=== PATIENT | female | born 1990 | race Caucasian/White ===

== ENCOUNTER → 2017-01-28 | Outpatient (CLI) | payer BC ==
[2017-01-28 15:26] VITALS: BP 144/78; PULSE 85; RESP 16; TEMP 98.2; BMI 52.1
[2017-01-28 16:27] LABS: CH 27.8; CHCM 32.6; HCT 38.1 % (34.0-46.0); HDW 2.83; HGB 12.3 gm/dL (11.4-16.0); MCH 27.7 pg (25.0-35.0); MCHC 32.3 g/dL (31.0-37.0); MCV 85.7 fL (80.0-100.0); Mean Platelet Volume 8.4; RBC 4.44 m/uL (3.80-5.40); RDW 14.3 % (11.5-15.5); WBC 8.4 k/uL (3.8-10.6)
[2017-01-28 16:33] LABS: ALT 65 U/L (9-52); AST 68 U/L (14-36); Alkaline Phosphatase 91 U/L (38-126); Anion Gap 14 mmol/L; Blood Urea Nitrogen 12 mg/dL (7-17); Carbon Dioxide 24 mmol/L (22-30); Chloride 103 mmol/L (98-107); Cholesterol 201 mg/dL (<200); Glucose 79 mg/dL (74-99); HDL Cholesterol 66 mg/dL (40-60); Non-African American GFR(MDRD) >60 (>60 ml/min/1.73 sqM); Potassium 4.4 mmol/L (3.5-5.1); Sodium 141 mmol/L (137-145); Total Bilirubin 0.4 mg/dL (0.2-1.3); Total Protein 7.6 g/dL (6.3-8.2); Triglycerides 161 mg/dL (<150)
[2017-01-28 17:38] LABS: Vitamin B12 620 pg/mL (239-931)
[2017-01-28 18:55] LABS: Hemoglobin A1C 5.1 % (4.2-6.1)
[2017-01-28 23:50] LABS: Iron 45 ug/dL (37-170)
[2017-01-28 23:59] LABS: % Iron Saturation 11.3 % (20-50); Total Iron Binding Capacity 397 ug/dL (265-497)
[2017-02-02 06:43] LABS: Anabasine Urine <2.0 ng/mL (<2.0)
--- NOTE | 2017-03-05 03:00 | P.PN ---
Progress Note - Text DATE OF CONSULTATION: 01/28/2017 CHIEF COMPLAINT: Initial bariatric assessment. HISTORY OF PRESENT ILLNESS: Bailey Estrella is a 27-year-old female who presents for her initial bariatric evaluation. She is evaluating for a sleeve gastrectomy. She has completed evaluation with a verifying specialist and also had medical risk assessment. She is pending a psych assessment. She reports previous tobacco use including marijuana. As a result of her morbid obesity she has developed hypertension. She has strong family history of weight problems with her mother including grandfather. She has history of diabetes in her family. She reports gastroesophageal reflux disease. Denies any personal or family history of esophageal or stomach cancer. She denies any lupus or Crohn's disease or pulmonary embolism or DVTs. She still has her gallbladder. She reports severe panniculitis. She also reports osteoarthritis of the lower back, but she denies any pain along the hips or knees. Her heaviest weight is at present, where she comes in weighing 350 pounds for her 5 feet 8-3/4 inches frame. Her ideal body weight is 163 pounds. She is 187 pounds overweight. Body mass index is 52.1. PAST MEDICAL HISTORY: 1. Osteoarthritis of the lower back. 2. Panniculitis. 3. Gastroesophageal reflux disease. 4. Hypertensive heart disease. 5. Vitamin D deficiency. 6. Depression. 7. History of nicotine use. 8. History of heart valve disease. PAST SURGICAL HISTORY: 1. Appendectomy. 2. . INDICATIONS: 1. Vitamin B12. 2. Vitamin C. 3. Multivitamin. 4. Magnesium. 5. Vitamin D. 6. Lexapro. 7. Lopressor. ALLERGIES: Denies. SOCIAL HISTORY: Former tobacco use. Also reports alcohol use. She smokes medicinal marijuana. FAMILY HISTORY: Pertinent for diabetes including morbid obesity. She denies any esophageal cancer or stomach cancer. REVIEW OF SYSTEMS: CONSTITUTIONAL: [place] body weight for her 5 foot 8-3/4 inch frame is 163 pounds. Present weight is 350 pounds. She is 187 pounds overweight. Body mass index is 52.1. HEENT: Denies any troubles with vision or hearing. No reports of nasal bleed. No reports of diabetes. ENDOCRINE: No report of diabetes. Denies any thyroid disorders. RESPIRATORY: No recent evaluation of obstructive sleep apnea. Denies any dyspnea on exertion. GASTROINTESTINAL: Gastroesophageal reflux disease. No reports of Crohn's disease or ulcerative colitis. Denies any active diarrhea. MUSCULOSKELETAL: She has lower back pain. No reports of rheumatoid arthritis or lupus. NEURO: No report of stroke or seizure disorder. PSYCH: No reports of suicidal ideation. Has history of depression. HEMATOLOGIC: No reports of DVTs or pulmonary embolism. DIETARY HISTORY: Reports previous attempted weight loss with minimal success. Most weight loss in supervised program is 40 pounds. PHYSICAL EXAM: VITAL SIGNS: 98.2, 85, 16, 144/78; 5 foot 8-3/4 inch frame, 350 pounds. Body mass index 52.1. GENERAL: Well-developed, pleasant female in no acute distress. HEENT: No scleral icterus. Extraocular movements grossly intact. Moist buccal mucosa. NECK: Supple without lymphadenopathy. CHEST: Nonlabored respirations. Equal bilateral scars. CARDIOVASCULAR: Regular rate and rhythm. ABDOMEN: Obese, soft, nontender, nondistended. MUSCULOSKELETAL: No clubbing, cyanosis, or edema. New focal or lateralizing signs. PSYCH: Appropriate affect. Alert and oriented to person, place, and time. LABS: Basic metabolic panel was obtained demonstrating percent iron saturation low at 11.3%. Hemoglobin A1c is normal at 5.1%. AST was elevated at 60. ALT elevated at 65. Triglycerides elevated at 161. Cholesterol elevated at 201. LDL elevated at 103. HDL elevated at 66. Vitamin D low at 22. Urine nicotine test was negative. EKG normal sinus rhythm. ASSESSMENT: 1. Morbid obesity due to excess calories. 2. Body mass index of 52.1. 3. Essential hypertension. 4. Previous history of tobacco use, now resolved. 5. Gastroesophageal reflux disease. 6. Family history of gallbladder disease. 7. Panniculitis. 8. Osteoarthritis of the lower back. 9. Dietary surveillance and counseling. 10. Hypertriglyceridemia. 11. Elevated AST. 12. Elevated ALT. 13. Vitamin D deficiency. PLAN: 1. I recommend vitamin D supplement at minimum of 5000 units daily. 2. She has elevated liver enzymes highly suspicious for fatty liver disease. Recommend ultrasound of the right upper quadrant and liver. 3. She is evaluating for sleeve gastrectomy. [facility] Data was reviewed in detail, including benefits and risks and comorbidity resolution between the band, sleeve and Chaim-en-Y gastric bypass. 4. She is pending psych clearance and assessment. 5. Recommend upper endoscopy for history of gastroesophageal reflux disease. 6. Recommend follow-up upon on completion of her upper endoscopy and bariatric profile. Thank you very much for this kind consultation.
== END | disposition home or self-care (01) ==
LOC: BARWHC3 13:50
PROVIDERS: ATTEND Surgery Plastic and Reconstructive Surgery
DX: Z01.818 Encounter for other preprocedural examination (principal); E66.01 Morbid (severe) obesity due to excess calories; Z68.43 Body mass index [BMI] 50.0-59.9, adult; K21.9 Gastro-esophageal reflux disease without esophagitis; E89.1 Postprocedural hypoinsulinemia; D50.9 Iron deficiency anemia, unspecified; E44.0 Moderate protein-calorie malnutrition; E55.9 Vitamin D deficiency, unspecified; I11.9 Hypertensive heart disease without heart failure; M54.02 Panniculitis affecting regions of neck and back, cervical region; M47.896 Other spondylosis, lumbar region; E78.1 Pure hyperglyceridemia; R79.89 Other specified abnormal findings of blood chemistry; F32.9 Major depressive disorder, single episode, unspecified; Z87.891 Personal history of nicotine dependence; Z79.899 Other long term (current) drug therapy; F12.90 Cannabis use, unspecified, uncomplicated; Z84.89 Family history of other specified conditions
CPT/HCPCS: 80053; 80061; 80323; 82306; 82607; 82728; 82746; 83036; 83540; 83550; 84425; 84443; 85027; 99201

== ENCOUNTER 2017-02-25 07:13 | Day surgery (SDC) | payer BC ==
[2017-02-20 14:30] VITALS: BMI 53.1
--- NOTE | 2017-02-25 01:50 | P.GSHP ---
History of Present Illness H&P Date: 02/25/17 CHIEF COMPLAINT: GERD HISTORY OF PRESENT ILLNESS: The patient is a 27-year-old female who presents reports gastroesophageal reflux disease. Upper endoscopy was offered for further evaluation and management. PAST MEDICAL HISTORY: Please see list. PAST SURGICAL HISTORY: Please see list. MEDICATIONS: Please see list. ALLERGIES: Please see list. SOCIAL HISTORY: No illicit drug use FAMILY HISTORY: No reports of Crohn disease or ulcerative colitis. REVIEW OF ORGAN SYSTEMS: CONSTITUTIONAL: No reports of fevers or chills. GI: Denies any blood in stools or constipation. PHYSICAL EXAM: VITAL SIGNS: Stable GENERAL: Well-developed and pleasant in no acute distress. HEENT: No scleral icterus. Extraocular movements grossly intact. Moist buccal mucosa. NECK: Supple without lymphadenopathy. CHEST: Unlabored respirations. Equal bilateral excursions. CARDIOVASCULAR: Regular rate and rhythm. Distal 2+ pulses. ABDOMEN: Soft, nondistended. MUSCULOSKELETAL: No clubbing, cyanosis, or edema. ASSESSMENT: 1. Gastroesophageal reflux disease PLAN: 1. Recommend proceeding with an upper endoscopy Past Medical History Past Medical History: Asthma, Hypertension Additional Past Medical History / Comment(s): heart valve disease, pt states has enlarged lt atrium, irreg. heart rate, hx anemia, pelvic inflammatory disease History of Any Multi-Drug Resistant Organisms: None Reported Past Surgical History: Appendectomy, Section Past Anesthesia/Blood Transfusion Reactions: No Reported Reaction Past Psychological History: Anxiety Smoking Status: Former smoker Past Alcohol Use History: Rare Additional Past Alcohol Use History / Comment(s): smoker for 1 year, 1 pack/week , quit 2006 Past Drug Use History: Marijuana Additional Drug Use History / Comment(s): 3 nights/week <1 joint each time - Past Family History Mother Family Medical History: No Reported History Medications and Allergies Home Medications Medication Instructions Recorded Confirmed Type Ascorbic Acid [Vitamin C] 1 tab PO DAILY 01/28/17 02/20/17 History Cyanocobalamin (Vitamin B-12) 1 tab PO DAILY 01/28/17 02/20/17 History [Vitamin B-12] Ergocalciferol (Vitamin D2) 1 tab PO CUEVAS 01/28/17 02/20/17 History [Vitamin D2] Escitalopram [Lexapro] 10 mg PO DAILY 01/28/17 02/20/17 History Magnesium 1 tab PO DAILY 01/28/17 02/20/17 History Metoprolol Tartrate [Lopressor] 1 tab PO HS 01/28/17 02/20/17 History Multivitamins, Thera [Multivitamin] 1 tab PO DAILY 01/28/17 02/20/17 History Allergies Allergy/AdvReac Type Severity Reaction Status Date / Time No Known Allergies Allergy Verified 02/20/17 14:03
[~2017-02-25 07:13] MED LIST: LACTATED RINGERS 1,000 ML IV SCH; LIDOCAINE 1% 20 ML VIAL (10MG/ML) FOR IV START INTRADERMA PRN
[2017-02-25 07:45] VITALS: RESP 18; TEMP 97.7
[2017-02-25] MEDS ORDERED: GLYCOPYRROLATE 0.2 MG/ML 2 ML VIAL ONE (08:35)
[2017-02-25] MEDS ORDERED: KETAMINE 10 MG/ML 20 ML VIAL ONE (08:35)
[2017-02-25] MEDS ORDERED: LIDOCAINE 1% INJ 10MG/ML (20 ML MDV) ONE (08:35)
[2017-02-25] MEDS ORDERED: PROPOFOL 10 MG/ML 20 ML VIAL IV ONE (08:35)
--- NOTE | 2017-02-25 08:58 | P.PCN ---
Date of Procedure: 02/25/17 Description of Procedure: PREOPERATIVE DIAGNOSIS: Gastroesophageal reflux disease. POSTOPERATIVE DIAGNOSIS: Chronic gastritis with stigmata bleed Diaphragmatic hiatal hernia. Gastroesophageal reflux disease. OPERATION: Esophagogastroduodenoscopy with biopsies along antrum. SURGEON: Ofe Adams MD ANESTHESIA: MAC. INDICATIONS: The patient is a 27-year-old female who presents with a history of reflux disease. Benefits and risks of the procedure were described. Informed consent was obtained. DESCRIPTION: The patient was brought into the endoscopy suite and laid in the left lateral decubitus position. An Olympus gastroscope was passed along the posterior oropharynx down to the distal esophagus where the squamocolumnar junction was encountered at 38 cm from the incisors. The stomach was entered and minimal bile reflux was found. Additional findings are listed below. Biopsies with cold forceps were obtained of the antrum. The first through third portion of the duodenum was examined and unremarkable. Retroflexion of the scope confirmed Hill grade 3 lower esophageal valve. The squamocolumnar junction demostrated LA grade B erosive esophagitis. The stomach was desufflated. The patient tolerated the procedure well. FINDINGS: Squamocolumnar junction 38 cm from the incisors. Diaphragmatic hiatus at 40 cm from the incisors. Hiatal hernia, 2 cm. Hill grade 3 lower esophageal valve. LA grade B erosive esophagitis. No active duodenitis. Acute active gastritis, superficial with recent bleed. RECOMMENDATIONS: Start medical therapy. Further recommendations pending results of pathology report. Upper endoscopy as needed. Plan - Discharge Summary Discharge Medication List Ascorbic Acid [Vitamin C] 1 tab PO DAILY 01/28/17 [History] Cyanocobalamin (Vitamin B-12) [Vitamin B-12] 1 tab PO DAILY 01/28/17 [History] Ergocalciferol (Vitamin D2) [Vitamin D2] 1 tab PO CUEVAS 01/28/17 [History] Escitalopram [Lexapro] 10 mg PO DAILY 01/28/17 [History] Magnesium 1 tab PO DAILY 01/28/17 [History] Metoprolol Tartrate [Lopressor] 1 tab PO HS 01/28/17 [History] Multivitamins, Thera [Multivitamin] 1 tab PO DAILY 01/28/17 [History] Follow up Appointment(s)/Referral(s): Ofe Adams MD [STAFF PHYSICIAN] - 03/18/17 (Bariatric center) Patient Instructions/Handouts: Gastritis (DC), Gastroesophageal Reflux Disease (DC), Hiatal Hernia (GEN) Discharge Disposition: HOME SELF-CARE
[2017-02-25 09:38] VITALS: BP 131/88; PULSE 76
== END 2017-02-25 09:50 | disposition home or self-care (01) ==
LOC: ORWHC2ENDO 07:13
PROVIDERS: ATTEND Surgery Plastic and Reconstructive Surgery
DX: K29.61 Other gastritis with bleeding (principal); K22.10 Ulcer of esophagus without bleeding; Z87.891 Personal history of nicotine dependence; K44.9 Diaphragmatic hernia without obstruction or gangrene; I10 Essential (primary) hypertension; F32.9 Major depressive disorder, single episode, unspecified; F41.9 Anxiety disorder, unspecified; E66.01 Morbid (severe) obesity due to excess calories; Z68.43 Body mass index [BMI] 50.0-59.9, adult
CPT/HCPCS: 81025; 88305; 88342; 43239; J2001; J2704

== ENCOUNTER → 2017-03-18 | Outpatient (CLI) | payer BC ==
[2017-03-18 14:40] VITALS: BP 168/74; PULSE 91; TEMP 98.2; BMI 52.7
--- NOTE | 2017-05-13 03:48 | P.PN ---
Progress Note - Text DATE OF SERVICE: 03/18/2017 CHIEF COMPLAINT: Bariatric assessment. HISTORY OF PRESENT ILLNESS: Bailey Estrella is a very pleasant 27 -year-old female who [facility] in January 2017. For her height of 5 foot 8-3/4 inch frame her ideal body weight is 163 pounds. Her weight at the time of evaluation was 350 pounds. Now she comes in weighing 354 pounds. She has gained 4 pounds in approximately 2 months. Her body mass index is currently 52.7. She is 191 pounds overweight. She has completed an upper endoscopy with features consistent with diaphragmatic hiatal hernia including reflux disease. Now she presents for further evaluation and management. Her personal goal is to evaluate for sleeve gastrectomy. As a result of her morbid obesity, she has hypertension including osteoarthritis, sleep apnea as well as osteoarthritis of the lower back. She does report severe panniculitis. PAST MEDICAL HISTORY: 1. Osteoarthritis of the lower back. 2. Panniculitis. 3. Gastroesophageal reflux disease. 4. Hypertensive heart disease. 5. Vitamin D deficiency. 6. Depression. 7. History of nicotine use. 8. History of heart valve disease. 9. Gastroesophageal reflux disease. PAST SURGICAL HISTORY: 1. Appendectomy. 2. . 3. Upper endoscopy. MEDICATIONS: 1. Vitamin B12. 2. Vitamin C. 3. Multivitamin. 4. Magnesium. 5. Vitamin D. 6. Lexapro. 7. Lopressor. ALLERGIES: Denies. SOCIAL HISTORY: Former tobacco use. Also reports alcohol use. She smokes medicinal marijuana. FAMILY HISTORY: Pertinent for diabetes including morbid obesity. She denies any esophageal cancer or stomach cancer. REVIEW OF SYSTEMS: CONSTITUTIONAL: Weight gain of 4 pounds. Body mass index is now up to 52.7. She is 191 pounds overweight. [place] body weight for her 5 foot 8-3/4 inch frame is 163 pounds. GASTROINTESTINAL: Findings of upper endoscopy consistent with hiatal hernia, gastroesophageal reflux disease. No reports of Crohn's disease or ulcerative colitis. Denies any active diarrhea. HEENT: Denies any troubles with vision or hearing. No reports of nasal bleed. No reports of diabetes. ENDOCRINE: No report of diabetes. Denies any thyroid disorders. RESPIRATORY: No recent evaluation of obstructive sleep apnea. Denies any dyspnea on exertion. MUSCULOSKELETAL: She has lower back pain. No reports of rheumatoid arthritis or lupus. NEURO: No report of stroke or seizure disorder. PSYCH: No reports of suicidal ideation. Has history of depression. HEMATOLOGIC: No reports of DVTs or pulmonary embolism. DIETARY HISTORY: Reports previous attempted weight loss with minimal success. Most weight loss in supervised program is 40 pounds. PHYSICAL EXAM: VITAL SIGNS: 98.2, 91, 18, 160/74; 5 feet 8-3/4 inches height, weight 354 pounds. Body mass index is 52.7. ABDOMEN: Soft, nontender, nondistended. GENERAL: Well-developed, pleasant female in no acute distress. HEENT: No scleral icterus. Extraocular movements grossly intact. Moist buccal mucosa. NECK: Supple without lymphadenopathy. CHEST: Nonlabored respirations. Equal bilateral scars. CARDIOVASCULAR: Regular rate and rhythm. MUSCULOSKELETAL: No clubbing, cyanosis, or edema. New focal or lateralizing signs. PSYCH: Appropriate affect. Alert and oriented to person, place, and time. LABS: Reviewed, demonstrating hemoglobin normal at 12.3. Percent iron saturation is low 11.3. AST and ALT were elevated at 60 and 65 respectively. Triglycerides elevated at 161. Cholesterol elevated at 201. LDL elevated at 103. HDL elevated at 66. Vitamin D was low at 22.0. Urine cotinine was negative. Pathology report consistent with chronic gastritis. STUDIES: Upper endoscopy revealed 2 cm diaphragmatic hiatal hernia. ASSESSMENT: 1. Morbid obesity due to excess calories. 2. Body mass index of 52.7. 3. Essential hypertension. 4. Previous history of tobacco use, now resolved. 5. Gastroesophageal reflux disease. 6. Family history of gallbladder disease. 7. Panniculitis. 8. Osteoarthritis of the lower back. 9. Dietary surveillance and counseling. 10. Hypertriglyceridemia. 11. Elevated AST. 12. Elevated ALT. 13. Vitamin D deficiency. 14. Diaphragmatic.hiatal hernia. PLAN: 1. We have gone over her options and [place] [facility] data was reviewed. She has elected for a sleeve gastrectomy. 2. She is a fairly young age for which risk of to be delayed at least for about one year was reviewed. She states her has had a vasectomy. 3. Inpatient hospitalization between one and two nights is advised. 4. Deep venous thrombosis prophylaxis. 5. Antibiotic prophylaxis. 6. As she has upper endoscopy findings for fairly small hiatal hernia, this will be re-evaluated. Possibility of a hiatal hernia repair may be performed at time of her procedure. 7. Recommend vitamin D supplement of at least 5000 units daily or 50,000 units weekly.
== END | disposition home or self-care (01) ==
LOC: BARWHC3 13:57
PROVIDERS: ATTEND Surgery Plastic and Reconstructive Surgery
DX: Z01.818 Encounter for other preprocedural examination (principal); E66.01 Morbid (severe) obesity due to excess calories; F12.90 Cannabis use, unspecified, uncomplicated; Z87.891 Personal history of nicotine dependence; Z68.43 Body mass index [BMI] 50.0-59.9, adult; I10 Essential (primary) hypertension; K21.9 Gastro-esophageal reflux disease without esophagitis; M79.3 Panniculitis, unspecified; R79.89 Other specified abnormal findings of blood chemistry; E55.9 Vitamin D deficiency, unspecified; K44.9 Diaphragmatic hernia without obstruction or gangrene; Z79.899 Other long term (current) drug therapy; E78.1 Pure hyperglyceridemia
CPT/HCPCS: 99211

== ENCOUNTER → 2017-04-06 | Outpatient (CLI) | payer BC ==
[2017-04-06 13:47] VITALS: BMI 53.2
== END | disposition home or self-care (01) ==
LOC: BARWHC3 08:40
PROVIDERS: ATTEND Surgery Plastic and Reconstructive Surgery
DX: Z01.810 Encounter for preprocedural cardiovascular examination (principal)
CPT/HCPCS: 97804

== ENCOUNTER → 2017-04-06 | Outpatient (CLI) | payer BC ==
[2017-04-06 12:33] LABS: EKG EKG PERFORMED
[2017-04-06 12:52] LABS: Basophils % (A) 0 %; CH 26.9; CHCM 31.6; Eosinophils # (A) 0.2 k/uL (0-0.7); Eosinophils % (A) 2 %; HCT 38.7 % (34.0-46.0); HDW 2.66; HGB 12.3 gm/dL (11.4-16.0); Hypochromasia Slight; Luc # (Auto) 0.21; Luc % (Auto) 2; Lymphocytes # (A) 2.6 k/uL (1.0-4.8); Lymphocytes % (A) 26 %; MCH 27.3 pg (25.0-35.0); MCHC 31.9 g/dL (31.0-37.0); MCV 85.5 fL (80.0-100.0); Mean Platelet Volume 7.9; Monocytes # (A) 0.4 k/uL (0-1.0); Monocytes % (A) 4 %; Neutrophils # (A) 6.7 k/uL (1.3-7.7); Neutrophils % (A) 66 %; RBC 4.53 m/uL (3.80-5.40); RDW 13.9 % (11.5-15.5); WBC 10.2 k/uL (3.8-10.6); WBC (Perox) 10.55
[2017-04-06 13:29] LABS: ALT 53 U/L (9-52); AST 42 U/L (14-36); Alkaline Phosphatase 94 U/L (38-126); Anion Gap 12 mmol/L; Blood Urea Nitrogen 7 mg/dL (7-17); Calcium 9.8 mg/dL (8.4-10.2); Carbon Dioxide 22 mmol/L (22-30); Chloride 105 mmol/L (98-107); Glucose 89 mg/dL (74-99); Non-African American GFR(MDRD) >60 (>60 ml/min/1.73 sqM); Potassium 4.5 mmol/L (3.5-5.1); Sodium 139 mmol/L (137-145); Total Bilirubin 0.3 mg/dL (0.2-1.3)
== END | disposition home or self-care (01) ==
LOC: LABPAT 12:11
PROVIDERS: ATTEND Surgery Plastic and Reconstructive Surgery
DX: Z01.810 Encounter for preprocedural cardiovascular examination (principal); Z01.818 Encounter for other preprocedural examination
CPT/HCPCS: 80053; 85025; 93005

== ENCOUNTER 2017-04-27 07:25 | Inpatient (IN) | payer BC ==
--- NOTE | 2017-04-27 06:40 | P.GSHP ---
History of Present Illness H&P Date: 04/27/17 CHIEF COMPLAINT:Bariatric assessment. HISTORY OF PRESENT ILLNESS: Bailey Estrella is a 27-year-old female who presents for her initial bariatric evaluation. She is evaluating for a sleeve gastrectomy. She has completed evaluation with a web design specialist and also had medical risk assessment. She reports previous tobacco use including marijuana. As a result of her morbid obesity she has developed hypertension. She has strong family history of weight problems with her mother including grandfather. She has history of diabetes in her family. She reports gastroesophageal reflux disease. Denies any personal or family history of esophageal or stomach cancer. She denies any lupus or Crohn's disease or pulmonary embolism or DVTs. She still has her gallbladder. She reports severe panniculitis. She also reports osteoarthritis of the lower back, but she denies any pain along the hips or knees. Her heaviest weight was 356 pounds for her 5 feet 8-3/4 inches frame. Her ideal body weight is 163 pounds. She is over 187 pounds overweight. Body mass index is 54.3 PAST MEDICAL HISTORY: 1. Osteoarthritis of the lower back. 2. Panniculitis. 3. Gastroesophageal reflux disease. 4. Hypertensive heart disease. 5. Vitamin D deficiency. 6. Depression. 7. History of nicotine use. 8. History of heart valve disease. PAST SURGICAL HISTORY: 1. Appendectomy. 2. . INDICATIONS: 1. Vitamin B12. 2. Vitamin C. 3. Multivitamin. 4. Magnesium. 5. Vitamin D. 6. Lexapro. 7. Lopressor. ALLERGIES: Denies. SOCIAL HISTORY: Former tobacco use. Also reports alcohol use. She smokes medicinal marijuana. FAMILY HISTORY: Pertinent for diabetes including morbid obesity. She denies any esophageal cancer or stomach cancer. REVIEW OF SYSTEMS: CONSTITUTIONAL: [place] body weight for her 5 foot 8-3/4 inch frame is 163 pounds. Present weight is 350 pounds. She is 187 pounds overweight. Body mass index is 52.1. HEENT: Denies any troubles with vision or hearing. No reports of nasal bleed. No reports of diabetes. ENDOCRINE: No report of diabetes. Denies any thyroid disorders. RESPIRATORY: No recent evaluation of obstructive sleep apnea. Denies any dyspnea on exertion. GASTROINTESTINAL: Gastroesophageal reflux disease. No reports of Crohn's disease or ulcerative colitis. Denies any active diarrhea. MUSCULOSKELETAL: She has lower back pain. No reports of rheumatoid arthritis or lupus. NEURO: No report of stroke or seizure disorder. PSYCH: No reports of suicidal ideation. Has history of depression. HEMATOLOGIC: No reports of DVTs or pulmonary embolism. DIETARY HISTORY: Reports previous attempted weight loss with minimal success. Most weight loss in supervised program is 40 pounds. PHYSICAL EXAM: VITAL SIGNS: 98.2, 85, 16, 144/78; 5 foot 8-3/4 inch frame, 356 pounds. Body mass index 54.3. GENERAL: Well-developed, pleasant female in no acute distress. HEENT: No scleral icterus. Extraocular movements grossly intact. Moist buccal mucosa. NECK: Supple without lymphadenopathy. CHEST: Nonlabored respirations. Equal bilateral scars. CARDIOVASCULAR: Regular rate and rhythm. ABDOMEN: Obese, soft, nontender, nondistended. MUSCULOSKELETAL: No clubbing, cyanosis, or edema. New focal or lateralizing signs. PSYCH: Appropriate affect. Alert and oriented to person, place, and time. LABS: Basic metabolic panel was obtained. EKG normal sinus rhythm. ASSESSMENT: 1. Morbid obesity due to excess calories. 2. Body mass index of 54.3. 3. Essential hypertension. 4. Previous history of tobacco use, now resolved. 5. Gastroesophageal reflux disease. 6. Family history of gallbladder disease. 7. Panniculitis. 8. Osteoarthritis of the lower back. 9. Dietary surveillance and counseling. 10. Hypertriglyceridemia. 11. Elevated AST. 12. Elevated ALT. 13. Vitamin D deficiency. PLAN: 1. An 8 page second-generation bariatric consent forms with detail: Benefits respiratory band, sleeve, Chaim-en-Y gastric bypass. She has elected for sleeve gastrectomy. 2. DVT prophylaxis. 3. Antibiotic prophylaxis. 4. Inpatient hospitalization anticipated for 2 nights. 5. Check magnesium levels for preexistent hypo-magnesia. Past Medical History Past Medical History: Asthma, Hypertension, Skin Disorder Additional Past Medical History / Comment(s): heart valve disease, pt states has enlarged lt atrium, irreg. heart rate, hx anemia, pelvic inflammatory disease, hx migraines, recent gastritis, hiatal hernia, eczema History of Any Multi-Drug Resistant Organisms: None Reported Past Surgical History: Appendectomy, Section Additional Past Surgical History / Comment(s): EGD Past Anesthesia/Blood Transfusion Reactions: No Reported Reaction Past Psychological History: Anxiety Smoking Status: Former smoker Past Alcohol Use History: None Reported Additional Past Alcohol Use History / Comment(s): smoker for 1 year, 1 pack/week , quit 2006 Past Drug Use History: Marijuana Additional Drug Use History / Comment(s): last 2 weeks ago - Past Family History Mother Family Medical History: No Reported History Medications and Allergies Home Medications Medication Instructions Recorded Confirmed Type Ascorbic Acid [Vitamin C] 1,000 mg PO DAILY 01/28/17 04/21/17 History Cyanocobalamin (Vitamin B-12) 1,000 mg PO DAILY 01/28/17 04/21/17 History [Vitamin B-12] Ergocalciferol (Vitamin D2) 50,000 tab PO CUEVAS 01/28/17 04/21/17 History [Vitamin D2] Escitalopram [Lexapro] 10 mg PO HS 01/28/17 04/21/17 History Magnesium 200 mg PO DAILY 01/28/17 04/21/17 History Metoprolol Tartrate [Lopressor] 25 mg PO HS 01/28/17 04/21/17 History Multivitamins, Thera [Multivitamin] 1 tab PO DAILY 01/28/17 04/21/17 History Allergies Allergy/AdvReac Type Severity Reaction Status Date / Time nickel Allergy Rash/Hives Verified 04/21/17 14:28
[~2017-04-27 07:25] MED LIST changes: +ACETAMINOPHEN IV (For NPO) 1,000 MG in EMPTY BAG 1 BAG IVPB ONE; +CHLORHEXIDINE GLUCONATE 15 ML CUP MUCOUS MEM ONE; +DEXAMETHASONE SOD PHOSPHATE 10 MG/ML 1 ML VIAL IV ONE; +ENOXAPARIN 40 MG/0.4 ML SYRINGE SQ ONE; -LACTATED RINGERS 1,000 ML IV SCH; -LIDOCAINE 1% 20 ML VIAL (10MG/ML) FOR IV START INTRADERMA PRN; +MIDAZOLAM 2 MG/2 ML VIAL IV PRN; +ONDANSETRON 4 MG/2 ML VIAL IVP ONE; +PANTOPRAZOLE 40 MG/10 ML VIAL IV STA; +SCOPOLAMINE 1.5MG/72HR PATCH TRANSDERM ONE; +ceFAZolin 3 GM in SODIUM CHLORIDE 0.9% 100 ML IVPB ONE
[2017-04-27] MEDS: LACTATED RINGERS 1,000 ML IV SCH (08:33)
[2017-04-27] MEDS ORDERED: LIDOCAINE 1% 20 ML VIAL (10MG/ML) FOR IV START INTRADERMA ONE (08:34)
[2017-04-27] MEDS ORDERED: fentaNYL (PF) 50 MCG/ML 2 ML AMP ONE (09:45)
[2017-04-27] MEDS ORDERED: ROCURONIUM BROMIDE 10 MG/ML 10 ML VIAL IV ONE (09:45)
[2017-04-27] MEDS ORDERED: NEOSTIGMINE 1 MG/ML 10 ML VIAL ONE (09:45)
[2017-04-27] MEDS ORDERED: MIDAZOLAM 2 MG/2 ML VIAL ONE (09:45)
[2017-04-27] MEDS ORDERED: PROPOFOL 10 MG/ML 20 ML VIAL IV ONE (09:45)
[2017-04-27] MEDS ORDERED: HYDROmorphone (PF) 1 MG/ML ONE (09:45)
[2017-04-27] MEDS ORDERED: SUCCINYLCHOLINE CHLORIDE 100 MG/5 ML SYR IV ONE (09:45)
[2017-04-27] MEDS ORDERED: LIDOCAINE 1% INJ 10MG/ML (20 ML MDV) ONE (09:45)
[2017-04-27] MEDS ORDERED: GLYCOPYRROLATE 0.2 MG/ML 2 ML VIAL ONE (09:45)
[2017-04-27] MEDS ORDERED: BUPIVACAIN-EPI 0.25%-1:200,000 30 ML VIAL SQ ONE (10:43)
[2017-04-27] MEDS ORDERED: LACTATED RINGERS 1,000 ML IV ONE ×2 (12:49→14:30)
[2017-04-27] MEDS ORDERED: NALOXONE 0.4 MG/ML 1 ML VIAL IV PRN (13:50)
--- NOTE | 2017-04-27 13:55 | P.PCN ---
Date of Procedure: 04/27/17 Preoperative Diagnosis: Morbid obesity Postoperative Diagnosis: Morbid obesity, BMI 51.2, intra-abdominal adhesions right lower quadrant Procedure(s) Performed: Robotic-assisted laparoscopic sleeve gastrectomy, multiport Implants: Anesthesia: GETA, local (90 ml) Surgeon: Ofe Adams Estimated Blood Loss (ml): 5 Pathology: other (Sleeve gastrectomy) Condition: stable Disposition: floor Indications for Procedure: Operative Findings: Sleeve, 6 cm x 25 cm Description of Procedure:
[2017-04-27] MEDS ORDERED: ONDANSETRON 4 MG/2 ML VIAL IVP ONE (14:03)
[2017-04-27] MEDS: HYDROmorphone 1 MG/ML 1 ML SYRINGE IVP PRN ×6 (14:04→23:52)
[2017-04-27] MEDS ORDERED: METOCLOPRAMIDE 5 MG/ML 2 ML VIAL IVP ONE (14:21)
[2017-04-27] MEDS ORDERED: ACETAMINOPHEN IV (For NPO) 1,000 MG in EMPTY BAG 1 BAG IVPB ONE (15:00)
[2017-04-27] MEDS: MAGNESIUM SULFATE-D5W PMX 1 GM in DEXTROSE/WATER 1 100ML.BAG IVPB SCH ×2 (16:02→17:36)
[2017-04-27] MEDS: ALBUTEROL NEBULIZED 2.5 MG/3 ML INHALATION SCH ×2 (16:08→21:54)
[2017-04-27] MEDS: 0.9% NACL WITH KCL 20 MEQ/L 1,000 ML IV SCH (16:52)
--- NOTE | 2017-04-27 17:46 | P.OP ---
Date of Procedure: 04/27/17 Preoperative Diagnosis: Postoperative Diagnosis: Procedure(s) Performed: Implants: Indications for Procedure: Operative Findings: Description of Procedure: DESCRIPTION OF PROCEDURE(S): SURGEON: SARITA MORA MD DYNAMICS AX SOLUTION ARCHITECT: NETO CISSE PREOPERATIVE DIAGNOSES: 1. Morbid obesity due to excess calories. 2. Body mass index of 54.3. 3. Essential hypertension. 4. Previous history of tobacco use, now resolved. 5. Gastroesophageal reflux disease. 6. Family history of gallbladder disease. 7. Panniculitis. 8. Osteoarthritis of the lower back. 9. Dietary surveillance and counseling. 10. Hypertriglyceridemia. 11. Elevated AST. 12. Elevated ALT. 13. Vitamin D deficiency. 14. Depression. 15. Metabolic syndrome. POSTOPERATIVE DIAGNOSES: 1. Morbid obesity due to excess calories. 2. Body mass index of 54.3. 3. Essential hypertension. 4. Previous history of tobacco use, now resolved. 5. Gastroesophageal reflux disease. 6. Family history of gallbladder disease. 7. Panniculitis. 8. Osteoarthritis of the lower back. 9. Dietary surveillance and counseling. 10. Hypertriglyceridemia. 11. Elevated AST. 12. Elevated ALT. 13. Vitamin D deficiency. 14. Depression. 15. Metabolic syndrome. OPERATION: 1. Robotic assisted laparoscopic sleeve gastrectomy with 40-Japanese bougie, multiport. 2. Intraoperative esophagogastrojejunoscopy. ANESTHESIA: 90 mL 0.25% Marcaine with epinephrine. ESTIMATED BLOOD LOSS: 5 mL SPECIMENS REMOVED: Sleeve gastrectomy COMPLICATIONS: None. INDICATIONS: The patient is a very pleasant, 27-year-old female who presents with morbid obesity as her body mass index was 54.3. Nicasio body weight of 163 pounds for her height of 5 feet 8 inches. Her initial weight was 356 pounds. Today she comes in weighing 336 pounds. All surgical options for morbid obesity had been described using the [place] bariatric surgery collaborative comorbidity resolution including complication risk score. The patient had elected for a gastric bypass with possible sleeve gastrectomy. A second-generation bariatric consent form was described in detail including the possibility of protein malnutrition, leaks, gastrojejunal stricture, venous thrombosis, need for further surgery for which she demonstrated understanding. Benefits and risks of the procedure were described at length. Informed consent was obtained. DESCRIPTION: The patient was brought into the operating room theater. She was placed on a split leg table. Preoperatively she had received Lovenox subcutaneously for DVT prophylaxis. Additionally she had undergone Peridex oral solution as an oral decontaminant. After general induction, the abdomen was prepped and draped in standard sterile fashion. The patient had previously voided prior to coming to the operating room. Ioban draping was placed along the abdomen. A robotic da Fredy Si system was prepped and primed. The xiphoid to pubis was measured of 35 cm. At 25 cm from the xiphoid to just below the umbilicus, proposed port sites were marked with indelible marker along the anterior axillary line bilaterally, mid axillary line bilaterally with each ports were marked 10 cm from each other. The food trades assistants port was marked along the right lateral abdominal wall. The robotic stapler port was marked for the right midclavicular line. A 5 mm 0 degrees laparoscopic trocar entry was performed along the left upper quadrant. The abdomen was insufflated to 15 mmHg pressure she tolerated well. Diagnostic laparoscopy demonstrated no injury to bowel, viscera, or mesentery. The liver surface was unremarkable. No injury had occurred to the small bowel or viscera. Along the hiatus no evidence of large prominent hiatal hernia was encountered. Moderate adhesions were found along the right lower quadrant of the greater omentum to the anterior abdominal wall from previous appendectomy however undisturbed during her procedure. Bariatric motorcycle subassembler length robotic ports were selected for the entire case. Next, one 8 mm robotic port and 12-mm robot stapler port was were placed along the right mid abdomen. The camera 12-mm port extended length was maintained along the epigastrium. Two 8 mm port was placed along the left upper abdominal wall after exchanging the 5 mm port. Please note that the ports were placed at least 20 cm away from the target anatomy of the gallbladder. Care was taken to check each robotic arms were safely away from collision with the bed or the patient. At the epigastrium, a median sized Yared liver retractor was placed under direct visualization with the Iron Director Channel placed over the right shoulder of the patient. The additional third robotic arm was placed along the left aspect of the patient. The patient was repositioned in reverse Trendelenburg position after lowering the bed. The robot was docked above the head of the patient. Using a grasper for arm 3, a veseel sealer for arm 2, including hook grasper for arm 1, the robotic system was docked and primed as described. Instruments were interchanged by the food trades assistants for stapler loads. I had sat at the console. The pylorus was identified and 6 cm proximally along the greater curvature of the stomach, the short gastrics were mobilized upwards to the angle of His using a vessel sealer. Hemostasis was excellent during this portion of the procedure. Next, the upper pole of the stomach was adherent to the left sarthak, which was gently dissected free using atraumatic grasper. The water/wastewater engineer had placed a 40-Japanese blunted bougie into the stomach. A robotic stapler was exchanged for atraumatic grasper of arm 1. Using 2 green loads, initial firing was across the antrum of the stomach towards the angle of His. In a similar direction, a total of 7 blue loads were fired towards the angle of Hss. The staple line was completely hemostatic and linear without corkscrewing. Hemostasis was excellent. The space from the angularis incisura of the sleeve was approximately 4 cm. I then went to the head of the bed to perform the intraoperative esophagogastroduodenoscopy leak test. The patient had been leveled. The upper pole of the stomach was bathed using normal saline solution. The scope was withdrawn with careful inspection along the staple line for which no leaks were found along the entire length. Additionally, the sleeve was completely hemostatic without any encroachment along the angularis incisura. Its topology was a straight tube. The GE junction was found to lay within and beyond into the abdominal cavity below the hiatus. No stricture was encountered upon placement of the scope. The GI tract was desufflated. The patient tolerated this portion of the procedure well. The scope was completely withdrawn. I then rescrubbed into case, whereby the irrigation fluid was aspirated from the abdominal cavity. Tisseel fibrin sealant was placed along the entire staple length. Once dried the Yared liver retractor was removed. Attention was now brought to removal of the specimen. The distal end of the sleeve gastrectomy specimen was brought out through the 13 mm port. The specimen was gently removed en total, corresponding to 25 cm x 6 cm sleeve gastrectomy specimen. No contamination had occurred during this process. The fascial defect was oversewn using 0 Vicryl using a Randy Plummer device. The fascial defect was air tight. All instruments and pneumoperitoneum including irrigation fluid was removed from the abdominal cavity. The 13 mm port site was irrigated with 2 liters of warm normal saline solution and 50 mL of hydroperoxide. 3-0 Vicryl was used to reapproximate the 13 mm port site including the 8 mm port site. The final incisions were closed using subcuticular running suture of 4-0 Monocryl. 90 mL of 0.25% Marcaine with epinephrine was infiltrated to all wounds for postop analgesia. Dermabond was applied to the skin once the skin had been cleansed. OptiFoam dressing was placed along the stomach extraction site. At the end of the procedure, needle, sponge, and instrument count was verified correct by the salesperson surgical appliances. The patient was taken to the postanesthesia care unit in stable condition. She had tolerated the procedure well and was taken to the postanesthesia unit in stable condition. Intraoperative films and findings were reviewed with the patient's family. Console time of 1 hr and 12 min. FINDINGS: 1. Negative intraoperative esophagogastrojejunoscopy leak test. 2. No fatty liver disease or hepatomegaly. 3. Total of 9 staplers used including 2 - 45 mm green robot nancy and 7 - 45 mm blue robot loads used to create the gastric sleeve. 4. Xiphoid to umbilicus of 35 cm.
[2017-04-27] MEDS: HYOSCYAMINE ORAL DROPS 1.875 MG/15 ML BOTTLE PO SCH ×2 (18:16→22:44)
[2017-04-27] MEDS: SIMETHICONE 40 MG/0.6 ML DROPS 2,000 MG/30 ML BOTTLE PO SCH ×2 (18:18→23:52)
[2017-04-27] MEDS: AMPICILLIN-SULBACTAM 3 GM in SODIUM CHLORIDE 0.9% 100 ML IVPB SCH ×2 (19:09→23:52)
--- NOTE | 2017-04-27 20:12 | P.PN ---
Progress Note - Text Patient seen and evaluated this evening. She denies any moderate abdominal pain. She reports discomfort with additional gas from swallowing. Recommend continuing with simethicone including hycosamine for gas. She is pending upper GI tomorrow. Potential discharge tomorrow afternoon.
[2017-04-27] MEDS: ONDANSETRON 4 MG/2 ML VIAL IVP PRN (22:37)
[2017-04-28] MEDS: 0.9% NACL WITH KCL 20 MEQ/L 1,000 ML IV SCH ×4 (02:43→20:12)
[2017-04-28] MEDS: HYDROmorphone 1 MG/ML 1 ML SYRINGE IVP PRN ×4 (03:55→16:39)
[2017-04-28] MEDS: HYOSCYAMINE ORAL DROPS 1.875 MG/15 ML BOTTLE PO SCH ×3 (06:22→16:40)
[2017-04-28] MEDS: SIMETHICONE 40 MG/0.6 ML DROPS 2,000 MG/30 ML BOTTLE PO SCH ×3 (06:22→16:39)
[2017-04-28] MEDS: ONDANSETRON 4 MG/2 ML VIAL IVP PRN (06:28)
[2017-04-28] MEDS: LACTATED RINGERS 1,000 ML IV SCH (07:31)
[2017-04-28 07:35] LABS: Basophils % (A) 0 %; CH 27.2; CHCM 32.7; Eosinophils % (A) 0 %; HCT 37.6 % (34.0-46.0); HDW 2.93; HGB 12.1 gm/dL (11.4-16.0); Luc # (Auto) 0.13; Luc % (Auto) 1; Lymphocytes # (A) 1.6 k/uL (1.0-4.8); Lymphocytes % (A) 16 %; MCHC 32.3 g/dL (31.0-37.0); MCV 83.4 fL (80.0-100.0); Monocytes # (A) 0.5 k/uL (0-1.0); Monocytes % (A) 5 %; Neutrophils # (A) 7.7 k/uL (1.3-7.7); Neutrophils % (A) 78 %; RDW 13.6 % (11.5-15.5); WBC 9.9 k/uL (3.8-10.6); WBC (Perox) 10.64
[2017-04-28] MEDS: ENOXAPARIN 60 MG/0.6 ML SYRINGE SQ SCH (07:39)
[2017-04-28] MEDS: PANTOPRAZOLE 40 MG/10 ML VIAL IV SCH (07:40)
[2017-04-28 07:50] LABS: Anion Gap 12 mmol/L; Blood Urea Nitrogen 6 mg/dL (7-17); Calcium 9.2 mg/dL (8.4-10.2); Carbon Dioxide 23 mmol/L (22-30); Chloride 108 mmol/L (98-107); Magnesium 2.1 mg/dL (1.6-2.3); Non-African American GFR(MDRD) >60 (>60 ml/min/1.73 sqM); Phosphorous 3.1 mg/dL (2.5-4.5); Potassium 4.5 mmol/L (3.5-5.1); Sodium 143 mmol/L (137-145)
[2017-04-28] MEDS: ALBUTEROL NEBULIZED 2.5 MG/3 ML INHALATION SCH ×4 (09:03→19:52)
--- NOTE | 2017-04-28 09:30 | FL ---
EXAMINATION TYPE: FL UGI DATE OF EXAM: 04/28/2017 COMPARISON: None HISTORY: Postoperative gastric sleeve x1 TECHNIQUE: A single contrast UGI study is performed in the standing upright position, using approxim ately 25 mL of Omnipaque 350 oral contrast. 1.01 minutes fluoroscopy time, with examination time of 3 0 minutes. FINDINGS: Direct Care Professional image of the abdomen shows no gross abnormality. The esophagus shows normal motility and emptying into the stomach. No evidence of hiatal hernia or s tricture noted. The stomach shows normal distensibility, peristalsis, and mucosal folds. No evidence of any mass or ulcer disease. No significant gastroesophageal reflux was seen during real time performance of this study. The duodenal bulb and sweep are unremarkable. There was delayed contrast transit from the stomach into the duodenum and from the duodenum distally such that the jejunum was not visualized. IMPRESSION: Negative study as seen, other than transit delay.
[2017-04-28 10:47] VITALS: BMI 51.1
[2017-04-28] MEDS: HYDROcodone/APAP 15 ML SOLUTION PO PRN ×2 (13:25→19:52)
--- NOTE | 2017-04-28 14:48 | P.PN ---
Subjective 27-year-old female seen and examined. Patient just returned from using the bathroom states no bowel movement is not passing gas rectally is belching. Patient states pain medication effective for pain control patient does report a nausea sensation but no active emesis states urinating no difficulty postop April 27.Robotic assisted laparoscopic sleeve gastrectomy for morbid obesity due to excessive calories BMI 54 Objective - Vital Signs Vital signs: Vital Signs Temp 98.8 F 04/28/17 07:22 Pulse 68 04/28/17 12:45 Resp 16 04/28/17 08:00 BP 161/97 04/28/17 07:22 Pulse Ox 100 04/28/17 12:35 Intake & Output 04/27/17 04/28/17 04/28/17 18:59 06:59 18:59 Intake Total 2400 1800 120 Output Total 5 500 Balance 2395 1300 120 Weight 152.6 kg 152.6 kg Intake: IV 2400 Intake, IV Titration 1800 Amount 0.9% NaCl with KCl 20 Meq 1800 /l 1,000 ml @ 150 mls/hr IV .Q6H40M [facility] Rx#: [id number] Oral 120 Output: Urine 500 Estimated Blood Loss 5 - Exam GENERAL APPEARANCE: 27-year-old female patient is alert, oriented, in no acute distress. VITAL SIGNS: Reviewed HEENT: Head is normocephalic and atraumatic. Pupils are equal and reactive. The nares are patent. Oropharynx is clear without lesions. NECK: Supple without lymphadenopathy. Traches midline. HEART: S1, S2. Regular rate and rhythm. Denying chest pain LUNGS: No crackles or wheezes are heard. Adequate air movement on room air ABDOMEN: Soft, dressings dry to surgical site slight surgical tenderness nondistended with good bowel sounds. No peritoneal signs. No palpable organomegaly or masses. Urinating no difficulty no stool EXTREMITIES: Normal skin color and turgor. No cyanosis, rash, ulceration, clubbing or edema. Radial pedal pulses are 2/4 bilaterally. NEUROLOGICAL: No focal deficits. Strength and sensation are grossly intact. - Labs CBC & Chem 7: 04/28/17 06:55 04/28/17 06:55 Labs: Abnormal Lab Results - Last 24 Hours (Table) 04/28/17 Range/Units 06:55 Chloride 108 H (98-107) mmol/L BUN 6 L (7-17) mg/dL Assessment and Plan Plan: Impression Postop April 27 Robotic assisted laparoscopic sleeve gastrectomy for morbid obesity BMI 54.3 Morbid obesity BMI 54 Essential hypertension Esophageal reflux disease Previous history of tobacco abuse now resolved Metabolic syndrome Vitamin D deficiency Depressive disorder nonspecified Plan continue postop surgical care as ordered Pain control Increase activity to the level of tolerance Continue with simethicone including hycosamine for gas. Possible discharge in the next 24 hours The above dictated assessment and findings were discussed with dr Adams. Impression and the plan of care have been dictated as directed. Lluvia Ariza nurse practitioner acting as a scribe for dr Adams
[2017-04-28] MEDS ORDERED: DEXAMETHASONE SOD PHOSPHATE 10 MG/ML 1 ML VIAL IV STA (15:47)
--- NOTE | 2017-04-28 18:31 | P.HPIM ---
History of Present Illness H&P Date: 04/28/17 Chief Complaint: Morbid obesity Patient is a 27-year-old female, with known history of morbid obesity admitted by Dr. Ofe Bazzi and underwent laparoscopic sleeve gastrectomy, patient is seen in postoperative evaluation for medical management while hospitalized. 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 heart rate, hx anemia, pelvic inflammatory disease, hx migraines, recent gastritis, hiatal hernia, eczema History of Any Multi-Drug Resistant Organisms: None Reported Past Surgical History: Appendectomy, Section Additional Past Surgical History / Comment(s): EGD Past Anesthesia/Blood Transfusion Reactions: No Reported Reaction Past Psychological History: Anxiety Smoking Status: Former smoker Past Alcohol Use History: None Reported Additional Past Alcohol Use History / Comment(s): smoker for 1 year, 1 pack/week , quit 2006 Past Drug Use History: Marijuana Additional Drug Use History / Comment(s): last 2 weeks ago - Past Family History Mother Family Medical History: No Reported History Medications and Allergies Home Medications Medication Instructions Recorded Confirmed Type Escitalopram [Lexapro] 10 mg PO HS 01/28/17 04/27/17 History Magnesium 200 mg PO DAILY 01/28/17 04/27/17 History Metoprolol Tartrate [Lopressor] 25 mg PO HS 01/28/17 04/27/17 History Allergies Allergy/AdvReac Type Severity Reaction Status Date / Time nickel Allergy Rash/Hives Verified 04/21/17 14:28 Physical Exam Vitals: Vital Signs Temp Pulse Pulse Resp BP Pulse Ox 04/28/17 16:31 75 04/28/17 16:17 64 98 04/28/17 16:00 77 18 04/28/17 14:35 97.9 F 77 18 165/85 99 04/28/17 14:00 96 04/28/17 12:45 68 04/28/17 12:35 100 04/28/17 12:30 60 04/28/17 08:00 75 16 04/28/17 07:22 98.8 F 75 16 161/97 100 04/28/17 03:35 98 04/28/17 01:41 98.0 F 90 16 154/81 93 L Intake and Output 04/28/17 04/28/17 04/28/17 06:59 14:59 22:59 Intake Total 1800 620 Balance 1800 620 Intake: IV 500 0.9% NaCl with KCl 20 Meq 500 /l 1,000 ml @ 150 mls/hr IV .Q6H40M [facility] Rx#: [id number] Intake, IV Titration 1800 Amount 0.9% NaCl with KCl 20 Meq 1800 /l 1,000 ml @ 150 mls/hr IV .Q6H40M [facility] Rx#: [id number] Oral 120 Other: # Voids 2 Weight 152.6 kg 152.6 kg Patient Weight 04/29/17 06:59 Weight 152.6 kg HEENT head normocephalic and atraumatic Neck is supple no JVD no goiter no lymphadenopathy chest exam reveals a clear respiratory sounds no crackles no wheezing Cardiac exam reveals regular heart sounds S1 and S2 no gallops no murmurs Abdomen is soft nontender no organomegaly was normal bowel sounds Extremity exam reveals no edema no cyanosis or clubbing Results CBC & Chem 7: 04/28/17 06:55 04/28/17 06:55 Labs: Abnormal Lab Results - Last 24 Hours (Table) 04/28/17 Range/Units 06:55 Chloride 108 H (98-107) mmol/L BUN 6 L (7-17) mg/dL Thrombosis Risk Factor Assmnt - Choose All That Apply Each Factor Represents 1 point: Obesity (BMI >25) Each Risk Factor Represents 2 Points: Laparoscopic surgery, Major surgery Thrombosis Risk Factor Assessment Total Risk Factor Score: 5 Thrombosis Risk Factor Assessment Level: High Risk Assessment and Plan Plan: #1 status post laparoscopic sleeve gastrectomy postoperative day #1 #2 gastroesophageal reflux disease #3 Essential hypertension #4 underlying morbid obesity with BMI of 54 #5 Depressive disorder #6 for DVT prophylaxis patient on subcu Lovenox Medication and labs were reviewed continue was current management possible discharge in the next 1-2 days
[2017-04-28] MEDS ORDERED: BISACODYL 10 MG SUPP RECTAL STA (21:03)
[2017-04-28] MEDS ORDERED: MAGNESIUM HYDROXIDE 2,400 MG/10 ML CUP PO STA (21:03)
[2017-04-29] MEDS: SIMETHICONE 40 MG/0.6 ML DROPS 2,000 MG/30 ML BOTTLE PO SCH ×3 (01:12→10:46)
[2017-04-29] MEDS: HYOSCYAMINE ORAL DROPS 1.875 MG/15 ML BOTTLE PO SCH ×3 (01:12→10:47)
[2017-04-29] MEDS: HYDROmorphone 1 MG/ML 1 ML SYRINGE IVP PRN (01:41)
[2017-04-29 02:28] VITALS: RESP 16
[2017-04-29] MEDS: 0.9% NACL WITH KCL 20 MEQ/L 1,000 ML IV SCH (05:20)
[2017-04-29] MEDS: HYDROcodone/APAP 15 ML SOLUTION PO PRN ×2 (06:19→12:22)
[2017-04-29] MEDS: LACTATED RINGERS 1,000 ML IV SCH (07:17)
[2017-04-29] MEDS: ALBUTEROL NEBULIZED 2.5 MG/3 ML INHALATION SCH ×2 (07:19→11:32)
[2017-04-29 07:32] VITALS: BP 148/82; TEMP 96.7
[2017-04-29] MEDS: PANTOPRAZOLE 40 MG/10 ML VIAL IV SCH (08:27)
[2017-04-29] MEDS: ENOXAPARIN 60 MG/0.6 ML SYRINGE SQ SCH (08:27)
[2017-04-29 11:48] VITALS: PULSE 78
--- NOTE | 2017-04-29 11:53 | P.DS ---
Providers Date of admission: 04/27/17 07:25 Expected date of discharge: 04/29/17 Attending physician: Ofe Adams Primary care physician: [facility] Course: A 27-year-old female presented on elective basis to undergo Robotic assisted laparoscopic sleeve gastrectomy for morbid obesity due to excessive calories BMI 54 done on April 27.. Postop there were no events. On the day of discharge patient was tolerating the diet and stated the pain medication was effective for pain control. up ambulating in the hallway stated there was a significant improvement in the abdominal discomfort patient stated passing gas no bowel movements urinating no difficulty Impression Postop April 27 Robotic assisted laparoscopic sleeve gastrectomy for morbid obesity BMI 54.3 Morbid obesity BMI 54 Essential hypertension Esophageal reflux disease Previous history of tobacco abuse now resolved Metabolic syndrome Vitamin D deficiency Depressive disorder nonspecified The above dictated assessment and findings were discussed with dr Adams. Impression and the plan of care have been dictated as directed. Lluvia Ariza nurse practitioner acting as a scribe for dr Adams Plan - Discharge Summary New Discharge Prescriptions: New HYDROcodone/APAP [Antoine Elixir 7.5-325Mg/15Ml] 15 ml PO Q4HR PRN #480 ml PRN Reason: Pain Omeprazole 40 mg PO DAILY #[address] capsule.[address] Discontinued Ergocalciferol (Vitamin D2) [Vitamin D2] 50,000 unit PO CUEVAS Multivitamins, Thera [Multivitamin] 1 tab PO DAILY Ascorbic Acid [Vitamin C] 1,000 mg PO DAILY Cyanocobalamin (Vitamin B-12) [Vitamin B-12] 1,000 mcg PO DAILY No Action Metoprolol Tartrate [Lopressor] 25 mg PO HS Escitalopram [Lexapro] 10 mg PO HS Magnesium 200 mg PO DAILY Discharge Medication List Escitalopram [Lexapro] 10 mg PO HS 01/28/17 [History] Magnesium 200 mg PO DAILY 01/28/17 [History] Metoprolol Tartrate [Lopressor] 25 mg PO HS 01/28/17 [History] HYDROcodone/APAP [Antoine Elixir 7.5-325Mg/15Ml] 15 ml PO Q4HR PRN #480 ml [Rx] Omeprazole 40 mg PO DAILY #90 capsule. 04/28/17 [Rx] Follow up Appointment(s)/Referral(s): Ofe Adams MD [STAFF PHYSICIAN] - 05/01/17 9:00 am (Bariatric center for 0900) Patient Instructions/Handouts: Nutrition after Bariatric Surgery (GEN), Laparoscopic Sleeve Gastrectomy (DC) Activity/Diet/Wound Care/Special Instructions: No lifting over 4 pounds in 4 weeks. May shower. No bath tub soaks. Discharge Disposition: HOME SELF-CARE
--- NOTE | 2017-04-29 12:53 | P.PN ---
Subjective Patient is a 27-year-old female, with known history of morbid obesity admitted by Dr. Ofe Bazzi and underwent laparoscopic sleeve gastrectomy, patient is seen in postoperative evaluation for medical management while hospitalized. Patient is doing better today nausea and belching have subsided, she has not required any IV pain medications since 2 am Objective - Vital Signs Vital signs: Vital Signs Temp 96.7 F L 04/29/17 07:29 Pulse 78 04/29/17 11:45 Resp 16 04/29/17 07:29 BP 148/82 04/29/17 07:29 Pulse Ox 97 04/29/17 07:29 Intake & Output 04/28/17 04/29/17 04/29/17 18:59 06:59 18:59 Intake Total 620 1800 Balance 620 1800 Weight 152.6 kg Intake: IV 500 1800 0.9% NaCl with KCl 20 Meq 500 1800 /l 1,000 ml @ 150 mls/hr IV .Q6H40M [facility] Rx#: [id number] Oral 120 Other: # Voids 2 # Bowel Movements 1 - Exam HEENT head normocephalic and atraumatic Neck is supple no JVD no goiter no lymphadenopathy chest exam reveals a clear respiratory sounds no crackles no wheezing Cardiac exam reveals regular heart sounds S1 and S2 no gallops no murmurs Abdomen is soft nontender no organomegaly was normal bowel sounds Extremity exam reveals no edema no cyanosis or clubbing - Labs CBC & Chem 7: 04/28/17 06:55 04/28/17 06:55 Assessment and Plan Plan: #1 status post laparoscopic sleeve gastrectomy postoperative day #1 #2 gastroesophageal reflux disease #3 Essential hypertension #4 underlying morbid obesity with BMI of 54 #5 Depressive disorder #6 for DVT prophylaxis patient on subcu Lovenox Patient is stable for discharge and should follow with primary care physician [facility] within one week
== END 2017-04-29 14:12 | disposition home or self-care (01) | DRG 621 ==
LOC: 2ORWHC 07:25 → 3SUR 13:18
PROVIDERS: ADMIT Surgery Plastic and Reconstructive Surgery; ATTEND Surgery Plastic and Reconstructive Surgery
PROC: 8E0W4CZ Robotic Assisted Procedure of Trunk Region, Percutaneous Endoscopic Approach (ICD-10-PCS; 2017-04-27)
PROC: 0DJ08ZZ Inspection of Upper Intestinal Tract, Via Natural or Artificial Opening Endoscopic (ICD-10-PCS; 2017-04-27)
PROC: 0DB64Z3 Excision of Stomach, Percutaneous Endoscopic Approach, Vertical (ICD-10-PCS; principal; 2017-04-27 09:00)
DX: E66.01 Morbid (severe) obesity due to excess calories (principal); E88.81 Metabolic syndrome and other insulin resistance; I11.9 Hypertensive heart disease without heart failure; E55.9 Vitamin D deficiency, unspecified; E78.1 Pure hyperglyceridemia; F12.90 Cannabis use, unspecified, uncomplicated; F32.9 Major depressive disorder, single episode, unspecified; F41.9 Anxiety disorder, unspecified; J45.909 Unspecified asthma, uncomplicated; K21.9 Gastro-esophageal reflux disease without esophagitis; M47.9 Spondylosis, unspecified; M79.3 Panniculitis, unspecified; G43.909 Migraine, unspecified, not intractable, without status migrainosus; K44.9 Diaphragmatic hernia without obstruction or gangrene; L30.9 Dermatitis, unspecified; Z68.43 Body mass index [BMI] 50.0-59.9, adult; Z79.899 Other long term (current) drug therapy; Z87.891 Personal history of nicotine dependence
CPT/HCPCS: 74240; 80051; 81025; 82310; 82565; 83735; 84100; 84520; 85025; 86850; 86900; 86901; 88307; 94640; 94760; 94762

== ENCOUNTER → 2017-05-01 | Outpatient (CLI) | payer BC ==
[~2017-05-01] MED LIST changes: -ACETAMINOPHEN IV (For NPO) 1,000 MG in EMPTY BAG 1 BAG IVPB ONE; -CHLORHEXIDINE GLUCONATE 15 ML CUP MUCOUS MEM ONE; -DEXAMETHASONE SOD PHOSPHATE 10 MG/ML 1 ML VIAL IV ONE; -ENOXAPARIN 40 MG/0.4 ML SYRINGE SQ ONE; -MIDAZOLAM 2 MG/2 ML VIAL IV PRN; +ONDANSETRON 4 MG/2 ML VIAL IVP NR; -ONDANSETRON 4 MG/2 ML VIAL IVP ONE; -PANTOPRAZOLE 40 MG/10 ML VIAL IV STA; -SCOPOLAMINE 1.5MG/72HR PATCH TRANSDERM ONE; +SODIUM CHLORIDE 0.9% 250 ML in EMPTY BAG 1 BAG IV PRN; +SODIUM CHLORIDE 0.9% 500 ML in EMPTY BAG 1 BAG IV PRN; -ceFAZolin 3 GM in SODIUM CHLORIDE 0.9% 100 ML IVPB ONE
[2017-05-01] MEDS: SODIUM CHLORIDE 0.9% 1,000 ML IV SCH ×2 (10:15→11:24)
[2017-05-01 10:40] VITALS: RESP 16
[2017-05-01 11:13] VITALS: BP 128/81; PULSE 69; TEMP 97.9; BMI 52.2
== END | disposition home or self-care (01) ==
LOC: BARWHC3 08:57
PROVIDERS: ATTEND Surgery Plastic and Reconstructive Surgery
DX: E86.0 Dehydration (principal)
CPT/HCPCS: 99211; 96360; 96361; 96375; J2405

== ENCOUNTER → 2017-05-07 | Outpatient (CLI) | payer BC ==
[2017-05-07 10:49] VITALS: BMI 48.4
[2017-05-07 11:08] VITALS: BP 129/83; PULSE 86; RESP 20; TEMP 97.7
--- NOTE | 2017-05-20 18:01 | P.PN ---
Progress Note - Text DATE OF SERVICE: 05/07/2017 CHIEF COMPLAINT: Follow-up sleeve gastrectomy. HISTORY OF PRESENT ILLNESS: Bailey Estrella is a very pleasant 27 -year-old female who presented to the [facility] in January 2017. She is status post sleeve gastrectomy on 04/27/2017. She reports discomfort along the weight of her pannus. Otherwise she is tolerating liquids. No reports of epigastric abdominal pain. For her height of 5 foot 8-3/4 inch frame her ideal body weight is 163 pounds. Her weight at the time of evaluation was 357 pounds. Now she comes in weighing 325 pounds. She has lost 32 pounds. She has lost 18 pounds in 1 week. Her body mass index is decreased from 53.2 done to 48.4 She is 162 pounds overweight. PHYSICAL EXAM: VITAL SIGNS: 5 feet 8.75 inches height, weight 325 pounds. Body mass index is 48.4. Vital Signs Temp 97.7 F 05/07/17 11:00 Pulse 86 05/07/17 11:00 Resp 20 05/07/17 11:00 BP 129/83 05/07/17 11:00 Pulse Ox ABDOMEN: Soft, nontender, nondistended. No infection. GENERAL: Well-developed, pleasant female in no acute distress. HEENT: No scleral icterus. Extraocular movements grossly intact. Moist buccal mucosa. NECK: Supple without lymphadenopathy. CHEST: Nonlabored respirations. Equal bilateral scars. CARDIOVASCULAR: Regular rate and rhythm. MUSCULOSKELETAL: No clubbing, cyanosis, or edema. New focal or lateralizing signs. PSYCH: Appropriate affect. Alert and oriented to person, place, and time. ASSESSMENT: 1. Morbid obesity due to excess calories. 2. Body mass index from 53.2 to 48.4. 3. Essential hypertension, improved. 4. Previous history of tobacco use, now resolved. 5. Gastroesophageal reflux disease. 6. Family history of gallbladder disease. 7. Panniculitis. 8. Osteoarthritis of the lower back. 9. Dietary surveillance and counseling. 10. Hypertriglyceridemia. 11. Elevated AST. 12. Elevated ALT. 13. Status post sleeve gastrectomy. PLAN: 1. Recommend abdominal binder. 2. Protein intake over 75 g daily. 3. May resume light activities under 20 pounds. 4. Follow-up 1 month postop, May 2017. 5. For pain, may take tramadol. Avoid NSAIDs.
== END | disposition home or self-care (01) ==
LOC: BARWHC3 09:28
PROVIDERS: ATTEND Surgery Plastic and Reconstructive Surgery
DX: Z48.815 Encounter for surgical aftercare following surgery on the digestive system (principal); E66.01 Morbid (severe) obesity due to excess calories; Z68.42 Body mass index [BMI] 45.0-49.9, adult; Z71.3 Dietary counseling and surveillance; Z98.84 Bariatric surgery status; Z87.891 Personal history of nicotine dependence; M79.3 Panniculitis, unspecified
CPT/HCPCS: 97803; 99211

== ENCOUNTER → 2017-06-17 | Outpatient (CLI) | payer BC ==
[2017-06-17 14:24] VITALS: BP 142/70; PULSE 70; RESP 16; TEMP 99.2; BMI 45.7
[2017-06-17 15:48] LABS: CH 26.9; CHCM 32.1; HCT 38.9 % (34.0-46.0); HDW 3.02; HGB 12.3 gm/dL (11.4-16.0); MCH 26.6 pg (25.0-35.0); MCHC 31.6 g/dL (31.0-37.0); MCV 84.2 fL (80.0-100.0); Mean Platelet Volume 9.6; RBC 4.62 m/uL (3.80-5.40); RDW 15.4 % (11.5-15.5); WBC 6.7 k/uL (3.8-10.6)
[2017-06-17 15:59] LABS: INR 1.1 (<1.2); Partial Thromboplastin Time 25.3 sec (22.0-30.0); Prothrombin Time 10.7 sec (9.0-12.0)
[2017-06-17 16:42] LABS: ALT 65 U/L (9-52); AST 38 U/L (14-36); Alkaline Phosphatase 80 U/L (38-126); Anion Gap 9 mmol/L; Blood Urea Nitrogen 10 mg/dL (7-17); Calcium 9.4 mg/dL (8.4-10.2); Carbon Dioxide 25 mmol/L (22-30); Chloride 106 mmol/L (98-107); Cholesterol 186 mg/dL (<200); Glucose 86 mg/dL (74-99); HDL Cholesterol 45 mg/dL (40-60); Iron 30 ug/dL (37-170); Magnesium 1.8 mg/dL (1.6-2.3); Non-African American GFR(MDRD) >60 (>60 ml/min/1.73 sqM); Phosphorous 4.1 mg/dL (2.5-4.5); Potassium 4.1 mmol/L (3.5-5.1); Sodium 140 mmol/L (137-145); Total Bilirubin 0.4 mg/dL (0.2-1.3); Total Protein 6.8 g/dL (6.3-8.2)
[2017-06-17 16:54] LABS: % Iron Saturation 8.4 % (20-50); Prealbumin 17 mg/dL (18-36); Total Iron Binding Capacity 357 ug/dL (265-497)
[2017-06-17 17:59] LABS: Vitamin B12 602 pg/mL (239-931)
[2017-06-17 19:16] LABS: Hemoglobin A1C 4.9 % (4.2-6.1)
[2017-06-19 15:41] LABS: Selenium 120 mcg/L (63-160)
--- NOTE | 2017-06-28 17:14 | P.PN ---
Progress Note - Text DATE OF SERVICE: 06/17/2017 CHIEF COMPLAINT: Follow-up sleeve gastrectomy. HISTORY OF PRESENT ILLNESS: Bailey Estrella is a very pleasant 27-year-old female status post sleeve gastrectomy on 04/27/2017. She denies any gastroesophageal reflux disease. She denies dysphagia. She has started her multivitamin. No reports of epigastric abdominal pain. For her height of 5 foot 8-3/4 inch frame her ideal body weight is 163 pounds. Her weight at the time of evaluation was 357 pounds. Now she comes in weighing 307 pounds. She has lost 50 pounds last time. She has lost 18 pounds since her last visit 5 weeks ago. Her body mass index has decreased from 53.2 done to 45.7. She is 144 pounds overweight. PHYSICAL EXAM: VITAL SIGNS: 5 feet 8.75 inches height, weight 307 pounds. Body mass index is 45.7. Vital Signs 06/17/17 14:22 Temperature 99.2 F Pulse Rate 70 Respiratory 16 Rate Blood Pressure 142/70 ABDOMEN: Soft, nontender, nondistended. No infection. GENERAL: Well-developed, pleasant female in no acute distress. HEENT: No scleral icterus. Extraocular movements grossly intact. Moist buccal mucosa. NECK: Supple without lymphadenopathy. CHEST: Nonlabored respirations. Equal bilateral scars. CARDIOVASCULAR: Regular rate and rhythm. MUSCULOSKELETAL: No clubbing, cyanosis, or edema. New focal or lateralizing signs. PSYCH: Appropriate affect. Alert and oriented to person, place, and time. LABS: Iron is low. AST and ALT is elevated. Vitamin A is low. Zinc is low. Laboratory Last Values WBC 6.7 k/uL (3.8-10.6) 06/17/17 15:31 RBC 4.62 m/uL (3.80-5.40) 06/17/17 15:31 Hgb 12.3 gm/dL (11.4-16.0) 06/17/17 15:31 Hct 38.9 % (34.0-46.0) 06/17/17 15:31 MCV 84.2 fL (80.0-100.0) 06/17/17 15:31 MCH 26.6 pg (25.0-35.0) 06/17/17 15:31 MCHC 31.6 g/dL (31.0-37.0) 06/17/17 15:31 RDW 15.4 % (11.5-15.5) 06/17/17 15:31 Plt Count 179 k/uL (150-450) 06/17/17 15:31 PT 10.7 sec (9.0-12.0) 06/17/17 15:31 INR 1.1 (<1.2) 06/17/17 15:31 APTT 25.3 sec (22.0-30.0) 06/17/17 15:31 Sodium 140 mmol/L (137-145) 06/17/17 15:31 Potassium 4.1 mmol/L (3.5-5.1) 06/17/17 15:31 Chloride 106 mmol/L (98-107) 06/17/17 15:31 Carbon Dioxide 25 mmol/L (22-30) 06/17/17 15:31 Anion Gap 9 mmol/L 06/17/17 15:31 BUN 10 mg/dL (7-17) 06/17/17 15:31 Creatinine 0.60 mg/dL (0.52-1.04) 06/17/17 15:31 Est GFR (MDRD) Af Amer >60 (>60 ml/min/1.73 sqM) 06/17/17 15:31 Est GFR (MDRD) Non-Af >60 (>60 ml/min/1.73 sqM) 06/17/17 15:31 Glucose 86 mg/dL (74-99) 06/17/17 15:[address] Glu mg/dL 94 mg/dL 06/17/17 15:31 Hemoglobin A1c 4.9 % (4.2-6.1) 06/17/17 15:31 Calcium 9.4 mg/dL (8.4-10.2) 06/17/17 15:31 Phosphorus 4.1 mg/dL (2.5-4.5) 06/17/17 15:31 Magnesium 1.8 mg/dL (1.6-2.3) 06/17/17 15:31 Iron 30 ug/dL (37-170) L 06/17/17 15:31 TIBC 357 ug/dL (265-497) 06/17/17 15:31 % Saturation 8.4 % (20-50) L 06/17/17 15:31 Ferritin 11 ng/mL (6-137) 06/17/17 15:31 Total Bilirubin 0.4 mg/dL (0.2-1.3) 06/17/17 15:31 AST 38 U/L (14-36) H 06/17/17 15:31 ALT 65 U/L (9-52) H 06/17/17 15:31 Alkaline Phosphatase 80 U/L (38-126) 06/17/17 15:31 Total Protein 6.8 g/dL (6.3-8.2) 06/17/17 15:31 Albumin 4.0 g/dL (3.5-5.0) 06/17/17 15:31 Prealbumin 17 mg/dL (18-36) L 06/17/17 15:31 Triglycerides 107 mg/dL (<150) 06/17/17 15:31 Cholesterol 186 mg/dL (<200) 06/17/17 15:31 LDL Cholesterol, Calc 120 mg/dL (0-99) H 06/17/17 15:31 HDL Cholesterol 45 mg/dL (40-60) 06/17/17 15:31 Vitamin A 33 ug/dL (38-106) L 06/17/17 15:31 Vitamin B1 56 ug/L (38-122) 06/17/17 15:31 Vitamin B12 602 pg/mL (239-931) 06/17/17 15:31 Vitamin D 25-Hydroxy 29.6 ng/mL (30.0-100.0) L 06/17/17 15:31 Folate 16.70 ng/mL (>2.75) 06/17/17 15:31 TSH 1.370 mIU/L (0.465-4.680) 06/17/17 15:31 PTH Intact 37.1 pg/mL (14.0-72.0) 06/17/17 15:31 Copper 1208 ug/L (810-1990) 06/17/17 15:31 Selenium 120 mcg/L (63-160) 06/17/17 15:31 Zinc 58 ug/dL (60-130) L 06/17/17 15:31 ASSESSMENT: 1. Morbid obesity due to excess calories. 2. Body mass index from 53.2 to 45.7. 3. Essential hypertension, improved. 4. Gastroesophageal reflux disease, resolved. 5. Panniculitis. 6. Dietary surveillance and counseling. 7. Status post sleeve gastrectomy. PLAN: 1. Recommend zinc supplement. 2. Recommend vitamin supplement. 3. Recommend vitamin A supplement. 4. Recommend vitamin D supplement. 5. Recommend iron infusion. 6. Recommend bariatric metabolic panel. 7. Recommend follow-up 3 months postop in July 2017.
== END | disposition home or self-care (01) ==
LOC: BARWHC3 14:00
PROVIDERS: ATTEND Surgery Plastic and Reconstructive Surgery
DX: Z48.815 Encounter for surgical aftercare following surgery on the digestive system (principal); E66.01 Morbid (severe) obesity due to excess calories; I10 Essential (primary) hypertension; M79.3 Panniculitis, unspecified; E21.1 Secondary hyperparathyroidism, not elsewhere classified; E89.1 Postprocedural hypoinsulinemia; D50.8 Other iron deficiency anemias; K90.89 Other intestinal malabsorption; E44.0 Moderate protein-calorie malnutrition; E55.9 Vitamin D deficiency, unspecified; K74.1 Hepatic sclerosis; T56.894A Toxic effect of other metals, undetermined, initial encounter; K50.90 Crohn's disease, unspecified, without complications; Z98.890 Other specified postprocedural states; Z68.42 Body mass index [BMI] 45.0-49.9, adult; Z71.3 Dietary counseling and surveillance; Z98.84 Bariatric surgery status
CPT/HCPCS: 36415; 80053; 80061; 82306; 82525; 82607; 82728; 82746; 83036; 83540; 83550; 83735; 83970; 84100; 84134; 84255; 84425; 84443; 84590; 84630; 85027; 85610; 85730; 97803; 99211

== ENCOUNTER → 2017-07-22 | Outpatient (CLI) | payer BC ==
--- NOTE | 2017-08-15 16:38 | P.PN ---
Progress Note - Text DATE OF SERVICE: 07/22/2017 CHIEF COMPLAINT: Follow-up sleeve gastrectomy. HISTORY OF PRESENT ILLNESS: Bailey Estrella is a very pleasant 27-year-old female status post sleeve gastrectomy on 04/27/2017. She denies any gastroesophageal reflux disease. She denies dysphagia. She reports troubles with her pannus. She has developed an ALLERGY to prescription strength antifungal powders. She denies any abdominal pain. She still Lopressor for blood pressure medication. For her height of 5 foot 8-3/4 inch frame her ideal body weight is 163 pounds. Her weight at the time of evaluation was 357 pounds. Now she comes in weighing 283 pounds. She has lost 74 pounds in total. She has lost 24 pounds since her last visit 1 month ago. Her body mass index has decreased from 53.2 done to 42.2. She is 120 pounds overweight. Percent excess weight loss of 38%. PHYSICAL EXAM: VITAL SIGNS: 5 feet 8.75 inches height, weight 283 pounds. Body mass index is 42.2 Vital Signs Temp 98.5 F 07/22/17 13:47 Pulse 76 07/22/17 13:47 Resp 16 07/22/17 13:47 BP 141/73 07/22/17 13:47 Pulse Ox ABDOMEN: Soft, nontender, nondistended. No hernia. GENERAL: Well-developed, pleasant female in no acute distress. HEENT: No scleral icterus. Extraocular movements grossly intact. Moist buccal mucosa. NECK: Supple without lymphadenopathy. CHEST: Nonlabored respirations. Equal bilateral scars. CARDIOVASCULAR: Regular rate and rhythm. MUSCULOSKELETAL: No clubbing, cyanosis, or edema. New focal or lateralizing signs. PSYCH: Appropriate affect. Alert and oriented to person, place, and time. SKIN: Well perfused. Good skin turgor. LABS: Iron is low. AST and ALT is elevated. Vitamin A is low. Zinc is low. Laboratory Last Values WBC 6.7 k/uL (3.8-10.6) 06/17/17 15:31 RBC 4.62 m/uL (3.80-5.40) 06/17/17 15:31 Hgb 12.3 gm/dL (11.4-16.0) 06/17/17 15:31 Hct 38.9 % (34.0-46.0) 06/17/17 15:31 MCV 84.2 fL (80.0-100.0) 06/17/17 15: MCH 26.6 pg (25.0-35.0) 06/17/17 15: MCHC 31.6 g/dL (31.0-37.0) 06/17/17 15:31 RDW 15.4 % (11.5-15.5) 06/17/17 15: Plt Count 179 k/uL (150-450) 06/17/17 15: PT 10.7 sec (9.0-12.0) 06/17/17 15: INR 1.1 (<1.2) 06/17/17 15: APTT 25.3 sec (22.0-30.0) 06/17/17 15:31 Sodium 140 mmol/L (137-145) 06/17/17 15:31 Potassium 4.1 mmol/L (3.5-5.1) 06/17/17 15:31 Chloride 106 mmol/L (98-107) 06/17/17 15: Carbon Dioxide 25 mmol/L (22-30) 06/17/17 15:31 Anion Gap 9 mmol/L 06/17/17 15:31 BUN 10 mg/dL (7-17) 06/17/17 15:31 Creatinine 0.60 mg/dL (0.52-1.04) 06/17/17 15:31 Est GFR (MDRD) Af Amer >60 (>60 ml/min/1.73 sqM) 06/17/17 15:31 Est GFR (MDRD) Non-Af >60 (>60 ml/min/1.73 sqM) 06/17/17 15:31 Glucose 86 mg/dL (74-99) 06/17/17 15:[address] Glu mg/dL 94 mg/dL 06/17/17 15:31 Hemoglobin A1c 4.9 % (4.2-6.1) 06/17/17 15:31 Calcium 9.4 mg/dL (8.4-10.2) 06/17/17 15:31 Phosphorus 4.1 mg/dL (2.5-4.5) 06/17/17 15:31 Magnesium 1.8 mg/dL (1.6-2.3) 06/17/17 15:31 Iron 30 ug/dL (37-170) L 06/17/17 15:31 TIBC 357 ug/dL (265-497) 06/17/17 15:31 % Saturation 8.4 % (20-50) L 06/17/17 15:31 Ferritin 11 ng/mL (6-137) 06/17/17 15:31 Total Bilirubin 0.4 mg/dL (0.2-1.3) 06/17/17 15:31 AST 38 U/L (14-36) H 06/17/17 15:31 ALT 65 U/L (9-52) H 06/17/17 15:31 Alkaline Phosphatase 80 U/L (38-126) 06/17/17 15:31 Total Protein 6.8 g/dL (6.3-8.2) 06/17/17 15:31 Albumin 4.0 g/dL (3.5-5.0) 06/17/17 15:31 Prealbumin 17 mg/dL (18-36) L 06/17/17 15:31 Triglycerides 107 mg/dL (<150) 06/17/17 15:31 Cholesterol 186 mg/dL (<200) 06/17/17 15:31 LDL Cholesterol, Calc 120 mg/dL (0-99) H 06/17/17 15:31 HDL Cholesterol 45 mg/dL (40-60) 06/17/17 15:31 Vitamin A 33 ug/dL (38-106) L 06/17/17 15:31 Vitamin B1 56 ug/L (38-122) 06/17/17 15:31 Vitamin B12 602 pg/mL (239-931) 06/17/17 15:31 Vitamin D 25-Hydroxy 29.6 ng/mL (30.0-100.0) L 06/17/17 15:31 Folate 16.70 ng/mL (>2.75) 06/17/17 15:31 TSH 1.370 mIU/L (0.465-4.680) 06/17/17 15:31 PTH Intact 37.1 pg/mL (14.0-72.0) 06/17/17 15:31 Copper 1208 ug/L (810-1990) 06/17/17 15:31 Selenium 120 mcg/L (63-160) 06/17/17 15:31 Zinc 58 ug/dL (60-130) L 06/17/17 15:31 ASSESSMENT: 1. Morbid obesity due to excess calories. 2. Body mass index from 53.2 to 42.2. 3. Essential hypertension, improved. 4. Gastroesophageal reflux disease, resolved. 5. Panniculitis. 6. Dietary surveillance and counseling. 7. Status post sleeve gastrectomy. 8. Iron deficiency anemia. 9. Vitamin A deficiency. 10. Zinc deficiency. 11. Vitamin D deficiency. PLAN: 1. Recommend correction of iron, vitamin A, zinc and vitamin D deficiency. 2. On exam, she has moderate-sized pannus and with her rapid weight loss, she may need a panniculectomy in the future. 3. In the interim, she has an ALLERGY to antifungal prescribed powders. Alternative includes [id number] remedies such as monkey but powder. 4. Weight loss is otherwise exceptional. 5. Follow-up September 2017.
== END | disposition home or self-care (01) ==
CPT/HCPCS: 97803; 99212

== ENCOUNTER 2019-08-12 20:02 | Emergency (ER) | payer BC, OTHER ==
[2019-08-12] MEDS ORDERED: IBUPROFEN 800 MG TAB PO STA (20:25)
[2019-08-12] MEDS ORDERED: ACETAMINOPHEN TAB 500 MG TAB PO STA (20:25)
[2019-08-12] MEDS ORDERED: AMOXIC-POT CLAV 875MG STARTER 2 EACH TABLET PO STA (20:57)
[2019-08-12] MEDS ORDERED: AMOXIC-POT CLAV 875-125MG 1 EACH TAB PO STA (20:57)
--- NOTE | 2019-08-12 21:01 | ED ---
ENT HPI - General Chief complaint: Abdominal Pain Stated complaint: sore throat and femle Time Seen by Provider: 08/12/19 20:23 Source: patient, RN notes reviewed, old records reviewed Mode of arrival: ambulatory Limitations: no limitations - History of Present Illness Initial comments: This is a 29-year-old female the ER for evaluation patient complaining of sore throat and abdominal pain. Sore throat with cough and swelling upper which she believes her lymph nodes. Patient does have fever. No nausea vomiting or diarrhea. No cough or shortness of breath. No dysuria. Patient has no known sick contacts no recent travel history. No significant medical history aside from history of PID he denies any vaginal discharge currently MD complaint: sore throat -: days(s) Location: throat Severity: moderate Severity scale (1-10): 5 Quality: aching, sharp Consistency: constant Improves with: none Worsens with: swallowing Context- Ear: recent illness Associated Symptoms: fever, sore throat - Related Data Home Medications Medication Instructions Recorded Confirmed Acetaminophen [Tylenol Extra 1,000 mg PO TID PRN 08/12/19 08/12/19 Strength] Allergies Allergy/AdvReac Type Severity Reaction Status Date / Time acetaminophen [From [place]] Allergy Rash/Hives Verified 08/12/19 20:45 hydrocodone [From [place]] Allergy Rash/Hives Verified 08/12/19 20:45 nickel Allergy Rash/Hives Verified 08/12/19 20:45 Review of Systems ROS Statement: Those systems with pertinent positive or pertinent negative responses have been documented in the HPI. ROS Other: All systems not noted in ROS Statement are negative. Past Medical History Past Medical History: Asthma, Hypertension Additional Past Medical History / Comment(s): heart valve disease, pt states has enlarged lt atrium, irreg. heart rate, hx anemia, pelvic inflammatory disease History of Any Multi-Drug Resistant Organisms: None Reported Past Surgical History: Appendectomy, Bariatric Surgery, Section Additional Past Surgical History / Comment(s): sleeve gastrectomy 04-27-17 Past Anesthesia/Blood Transfusion Reactions: No Reported Reaction Past Psychological History: Anxiety Smoking Status: Former smoker Past Alcohol Use History: Rare Past Drug Use History: Marijuana - Past Family History Mother Family Medical History: No Reported History General Exam Limitations: no limitations General appearance: alert, in no apparent distress Head exam: Present: atraumatic, normocephalic, normal inspection Eye exam: Present: normal appearance, PERRL, EOMI. Absent: scleral icterus, conjunctival injection, periorbital swelling ENT exam: Present: mucous membranes moist. Absent: normal oropharynx (Bilateral pharyngeal edema erythema with exudate) Neck exam: Present: normal inspection. Absent: tenderness, meningismus, lymphadenopathy Respiratory exam: Present: normal lung sounds bilaterally. Absent: respiratory distress, wheezes, rales, rhonchi, stridor Cardiovascular Exam: Present: regular rate, normal rhythm, normal heart sounds. Absent: systolic murmur, diastolic murmur, rubs, gallop, clicks GI/Abdominal exam: Present: soft, normal bowel sounds. Absent: distended, tenderness, guarding, rebound, rigid Extremities exam: Present: normal inspection, full ROM, normal capillary refill. Absent: tenderness, pedal edema, joint swelling, calf tenderness Back exam: Present: normal inspection Neurological exam: Present: alert, oriented X3, CN II-XII intact Psychiatric exam: Present: normal affect, normal mood Skin exam: Present: warm, dry, intact, normal color. Absent: rash Course Vital Signs 08/12/19 20:04 Temperature 101.1 F H Pulse Rate 94 Respiratory 20 Rate Blood Pressure 143/95 O2 Sat by Pulse 99 Oximetry - Reevaluation(s) Reevaluation #1: 08/12/19 21:00 Primary medical records reviewed Reevaluation #2: 08/12/19 21:00 Patient is feeling improved Medical Decision Making - Medical Decision Making 29 [place] positive strep throat. Patient will be given antibiotics and can be discharged home - Lab Data Lab Results 08/12/19 08/12/19 Range/Units 20:43 20:43 Heterophile Antibody Negative (Negative) Group A Strep Rapid Positive A (Negative) Disposition Clinical Impression: Abdominal pain, Strep throat Disposition: HOME SELF-CARE Condition: Good Instructions (If sedation given, give patient instructions): Strep Throat (ED) Is patient prescribed a controlled substance at d/c from ED?: No Referrals: Mercedes Hernández DO [Primary Care Provider] - 1-2 days
[2019-08-12 21:42] LABS: Appearance,Urine Clear (Clear); Bilirubin,Urine Negative (Negative); Blood,Urine Negative (Negative); Color,Urine Light Yellow; Glucose,Urine (UA) Negative (Negative); Ketones,Urine Negative (Negative); Leukocyte Esterase,Urine Negative (Negative); Nitrite,Urine Negative (Negative); PH, Urine 6.5 (5.0-8.0); Protein,Urine Negative (Negative); Specific Gravity,Urine 1.011 (1.001-1.035); Urobilinogen,Urine <2.0 mg/dL (<2.0)
[2019-08-12 21:45] VITALS: BP 120/77; PULSE 81; RESP 16; TEMP 98.3
[2019-08-13 16:24] LABS: C. trachomatis,PCR Negative (Neg,Equiv); Chlamydia trachomatis Source Urine; N. gonorrhoeae,PCR Negative (Neg,Equiv); Neisseria Source Urine
== END 2019-08-12 21:45 | disposition home or self-care (01) ==
LOC: EC 20:02
DX: J02.0 Streptococcal pharyngitis (principal); B95.0 Streptococcus, group A, as the cause of diseases classified elsewhere; Z88.5 Allergy status to narcotic agent; Z88.6 Allergy status to analgesic agent; Z88.8 Allergy status to other drugs, medicaments and biological substances; Z87.891 Personal history of nicotine dependence; Z98.84 Bariatric surgery status
CPT/HCPCS: 36415; 81003; 81025; 86308; 87430; 87491; 87591; 99284

== ENCOUNTER 2022-02-06 19:43 | Emergency (ER) | payer OTHER ==
[2022-02-06 20:56] VITALS: TEMP 98.3
[2022-02-06 23:23] LABS: Anisocytosis Slight; Basophils # (A) 0.1 k/uL (0-0.2); Basophils % (A) 1 %; Eosinophils # (A) 0.2 k/uL (0-0.7); Eosinophils % (A) 3 %; HCT 36.9 % (34.0-46.0); HGB 11.1 gm/dL (11.4-16.0); Hypochromasia Marked; Lymphocytes % (A) 25 %; MCV 76.6 fL (80.0-100.0); Mean Platelet Volume 9.3; Microcytosis Slight; Monocytes # (A) 0.5 k/uL (0-1.0); Monocytes % (A) 6 %; Neutrophils # (A) 5.1 k/uL (1.3-7.7); Neutrophils % (A) 63 %; Platelet Count 227 k/uL (150-450); RBC 4.82 m/uL (3.80-5.40); RDW 16.3 % (11.5-15.5)
[2022-02-06] MEDS ORDERED: ALPRAZolam 0.5 MG TAB PO STA (23:25)
--- NOTE | 2022-02-06 23:26 | ED ---
Arrhythmia/Palpitations HPI - General Chief Complaint: Arrhythmia/Palpitations Stated Complaint: Irregular heart rate Time Seen by Provider: 02/06/22 23:14 Source: patient Mode of arrival: ambulatory Limitations: no limitations - History of Present Illness Initial Comments: This patient is a 31-year-old woman who presents to be evaluated for palpitation s. She states that it feels like she is getting worse. The more more frequently. She has had this in the past and was seen by cardiology. She states that the extra beats are causing her anxiety flareup. She is not having chest pain, dyspnea, diaphoresis, nausea or vomiting. No syncope. MD Complaint: palpitations Onset/Timin -: days(s) Context: occurred during rest Associated Symptoms: anxiety - Related Data Home Medications Medication Instructions Recorded Confirmed Acetaminophen [Tylenol Extra 1,000 mg PO TID PRN 08/12/19 08/12/19 Strength] Previous Rx's Medication Instructions Recorded Amoxic-Pot Clav 875-125Mg 1 tab PO Q12HR #20 tablet 08/12/19 [Augmentin 875-125] Allergies Allergy/AdvReac Type Severity Reaction Status Date / Time acetaminophen [From [place]] Allergy Rash/Hives Verified 02/06/22 21:14 hydrocodone [From [place]] Allergy Rash/Hives Verified 02/06/22 21:14 nickel Allergy Rash/Hives Verified 02/06/22 21:14 Review of Systems ROS Statement: Those systems with pertinent positive or pertinent negative responses have been documented in the HPI. ROS Other: All systems not noted in ROS Statement are negative. Constitutional: Denies: fever, chills Respiratory: Denies: cough Cardiovascular: Reports: palpitations. Denies: chest pain, dyspnea on exertion, orthopnea, edema, syncope Gastrointestinal: Denies: abdominal pain, nausea, vomiting Genitourinary: Denies: dysuria, hematuria, abnormal menses Musculoskeletal: Denies: back pain Skin: Denies: rash Neurological: Denies: headache, weakness Past Medical History Past Medical History: Asthma, Hypertension Additional Past Medical History / Comment(s): heart valve disease, pt states has enlarged lt atrium, irreg. heart rate, hx anemia, pelvic inflammatory disease History of Any Multi-Drug Resistant Organisms: None Reported Past Surgical History: Appendectomy, Bariatric Surgery, Section Additional Past Surgical History / Comment(s): sleeve gastrectomy 04-27-17 Past Anesthesia/Blood Transfusion Reactions: No Reported Reaction Past Psychological History: Anxiety Smoking Status: Never smoker Past Alcohol Use History: Rare Past Drug Use History: Marijuana - Past Family History Mother Family Medical History: No Reported History General Exam Limitations: no limitations General appearance: alert, in no apparent distress Head exam: Present: atraumatic, normocephalic Eye exam: Present: normal appearance. Absent: scleral icterus, conjunctival injection Neck exam: Present: normal inspection Respiratory exam: Present: normal lung sounds bilaterally. Absent: respiratory distress, wheezes, rales, rhonchi, stridor Cardiovascular Exam: Present: regular rate, normal rhythm, normal heart sounds. Absent: systolic murmur, diastolic murmur, rubs, gallop GI/Abdominal exam: Present: soft. Absent: distended, tenderness, guarding, rebound, rigid Extremities exam: Present: normal inspection, normal capillary refill. Absent: pedal edema, calf tenderness Back exam: Present: normal inspection. Absent: CVA tenderness (R), CVA tenderness (L) Neurological exam: Present: alert, oriented X3 Psychiatric exam: Present: anxious. Absent: depressed Skin exam: Present: warm, dry, intact, normal color. Absent: rash Course Vital Signs 02/06/22 20:53 Temperature 98.3 F Pulse Rate 79 Respiratory 20 Rate Blood Pressure 141/82 O2 Sat by Pulse 100 Oximetry EKG Findings - EKG Results: EKG: interpreted by SAVANNAH JACKSON, sinus rhythm (Rate 79 bpm), normal axis, normal QRS, normal ST/T, no acute changes Medical Decision Making - Lab Data Result diagrams: 02/06/22 23:10 02/06/22 23:10 Lab Results 02/06/22 02/06/22 02/06/22 Range/Units 23:10 23:10 23:10 WBC 8.0 (3.8-10.6) k/uL RBC 4.82 (3.80-5.40) m/uL Hgb 11.1 L (11.4-16.0) gm/dL Hct 36.9 (34.0-46.0) % MCV 76.6 L (80.0-100.0) fL MCH 23.0 L (25.0-35.0) pg MCHC 30.0 L (31.0-37.0) g/dL RDW 16.3 H (11.5-15.5) % Plt Count 227 (150-450) k/uL MPV 9.3 Neutrophils % 63 % Lymphocytes % 25 % Monocytes % 6 % Eosinophils % 3 % Basophils % 1 % Neutrophils # 5.1 (1.3-7.7) k/uL Lymphocytes # 2.0 (1.0-4.8) k/uL Monocytes # 0.5 (0-1.0) k/uL Eosinophils # 0.2 (0-0.7) k/uL Basophils # 0.1 (0-0.2) k/uL Hypochromasia Marked Anisocytosis Slight Microcytosis Slight PT 9.7 (9.0-12.0) sec INR 0.9 (<1.2) APTT 24.1 (22.0-30.0) sec Sodium 138 (137-145) mmol/L Potassium 3.7 (3.5-5.1) mmol/L Chloride 106 (98-107) mmol/L Carbon Dioxide 22 (22-30) mmol/L Anion Gap 10 mmol/L BUN 9 (7-17) mg/dL Creatinine 0.60 (0.52-1.04) mg/dL Est GFR (CKD-EPI)AfAm >90 (>60 ml/min/1.73 sqM) Est GFR (CKD-EPI)NonAf >90 (>60 ml/min/1.73 sqM) Glucose 92 (74-99) mg/dL Calcium 9.4 (8.4-10.2) mg/dL Magnesium (1.6-2.3) mg/dL Total Bilirubin 0.4 (0.2-1.3) mg/dL AST 29 (14-36) U/L ALT 23 (4-34) U/L Alkaline Phosphatase 87 (38-126) U/L Troponin I (0.000-0.034) ng/mL Total Protein 8.2 (6.3-8.2) g/dL Albumin 4.6 (3.5-5.0) g/dL 02/06/22 02/06/22 Range/Units 23:10 23:10 WBC (3.8-10.6) k/uL RBC (3.80-5.40) m/uL Hgb (11.4-16.0) gm/dL Hct (34.0-46.0) % MCV (80.0-100.0) fL MCH (25.0-35.0) pg MCHC (31.0-37.0) g/dL RDW (11.5-15.5) % Plt Count (150-450) k/uL MPV Neutrophils % % Lymphocytes % % Monocytes % % Eosinophils % % Basophils % % Neutrophils # (1.3-7.7) k/uL Lymphocytes # (1.0-4.8) k/uL Monocytes # (0-1.0) k/uL Eosinophils # (0-0.7) k/uL Basophils # (0-0.2) k/uL Hypochromasia Anisocytosis Microcytosis PT (9.0-12.0) sec INR (<1.2) APTT (22.0-30.0) sec Sodium (137-145) mmol/L Potassium (3.5-5.1) mmol/L Chloride (98-107) mmol/L Carbon Dioxide (22-30) mmol/L Anion Gap mmol/L BUN (7-17) mg/dL Creatinine (0.52-1.04) mg/dL Est GFR (CKD-EPI)AfAm (>60 ml/min/1.73 sqM) Est GFR (CKD-EPI)NonAf (>60 ml/min/1.73 sqM) Glucose (74-99) mg/dL Calcium (8.4-10.2) mg/dL Magnesium 2.1 (1.6-2.3) mg/dL Total Bilirubin (0.2-1.3) mg/dL AST (14-36) U/L ALT (4-34) U/L Alkaline Phosphatase (38-126) U/L Troponin I <0.012 (0.000-0.034) ng/mL Total Protein (6.3-8.2) g/dL Albumin (3.5-5.0) g/dL Disposition Clinical Impression: Palpitations Disposition: HOME SELF-CARE Condition: Good Instructions (If sedation given, give patient instructions): Heart Palpitations (ED) Is patient prescribed a controlled substance at d/c from ED?: No Referrals: Mercedes Hernández DO [Primary Care Provider] - 1-2 days
[2022-02-06 23:27] LABS: INR 0.9 (<1.2); Partial Thromboplastin Time 24.1 sec (22.0-30.0); Prothrombin Time 9.7 sec (9.0-12.0)
[2022-02-06 23:29] LABS: ALT 23 U/L (4-34); AST 29 U/L (14-36); African American GFR (CKD) >90 (>60 ml/min/1.73 sqM); Albumin 4.6 g/dL (3.5-5.0); Alkaline Phosphatase 87 U/L (38-126); Anion Gap 10 mmol/L; Blood Urea Nitrogen 9 mg/dL (7-17); Calcium 9.4 mg/dL (8.4-10.2); Carbon Dioxide 22 mmol/L (22-30); Chloride 106 mmol/L (98-107); Glucose 92 mg/dL (74-99); Non-African American GFR(CKD) >90 (>60 ml/min/1.73 sqM); Potassium 3.7 mmol/L (3.5-5.1); Sodium 138 mmol/L (137-145); Total Bilirubin 0.4 mg/dL (0.2-1.3); Total Protein 8.2 g/dL (6.3-8.2)
--- NOTE | 2022-02-06 23:42 | XR ---
EXAMINATION TYPE: XR chest 2V DATE OF EXAM: 02/06/2022 COMPARISON: NONE HISTORY: Chest pain TECHNIQUE: 2 views FINDINGS: Heart and mediastinum are normal. Lungs are clear. Diaphragm is normal. Bony thorax appears normal. IMPRESSION: Normal chest.
[2022-02-07 00:40] VITALS: BP 135/79; PULSE 73; RESP 16
== END 2022-02-07 00:40 | disposition home or self-care (01) ==
LOC: EC 19:43
DX: R00.2 Palpitations (principal); J45.909 Unspecified asthma, uncomplicated; I10 Essential (primary) hypertension; Z88.6 Allergy status to analgesic agent; Z88.5 Allergy status to narcotic agent; Z91.048 Other nonmedicinal substance allergy status
CPT/HCPCS: 36415; 71046; 80053; 83735; 84484; 85025; 85610; 85730; 93005; 99285

== ENCOUNTER → 2023-09-11 | Outpatient (CLI) | payer OTHER ==
--- NOTE | 2023-09-13 13:19 | CT ---
EXAMINATION TYPE: CT pelvis w con DATE OF EXAM: 09/11/2023 COMPARISON: INDICATION: Abnormal ultrasound (not in PACS) that showed Cysts. Patient is in the process of a hyste rectomy. Excessive bleeding, thickened endometrial lining. States that symptoms have been ongoing thr ough adulthood. DLP: 1943.6 mGycm, Automated exposure control for dose reduction was used. CONTRAST: 100 cc mL of Isovue 300. Study performed with Oral Contrast TECHNIQUE: Axial images were obtained from above the iliac crests to the pubic rami in the axial plan e at 5 mm thick sections. Reconstructed images are reviewed on the computer in the coronal plane. FINDINGS: CT PELVIS: Loops of bowel within the lower abdomen and pelvis are normal. There are loops of bowel which are incompletely distended or lack oral contrast limiting their evaluation. Appendix: Not visualized. Cecal surgery with anastomosis may be present. This area may be resected. C orrelate with surgical history. Urinary bladder: Normal. Genitourinary structures: Uterus is enlarged. There is a thickened endometrium. Adnexa appear normal. No large ovarian cysts identified. There may be a 2.4 cm left adnexal cyst on the coronal plane imag es, series 7 image 38. Follicle may be on the right ovary. Osseous structures: No suspicious lytic or sclerotic lesions. IMPRESSION: 1. Prominent uterus with thick endometrium. 2.4 cm left ovarian cyst be present. Enlarged adnexal cyst not otherwise identified.
== END | disposition home or self-care (01) ==
LOC: RADCTMAIN 15:23
PROVIDERS: ATTEND Family Medicine
DX: R19.09 Other intra-abdominal and pelvic swelling, mass and lump (principal); R93.89 Abnormal findings on diagnostic imaging of other specified body structures; N83.202 Unspecified ovarian cyst, left side; N83.8 Other noninflammatory disorders of ovary, fallopian tube and broad ligament
CPT/HCPCS: 72193; Q9967